=== PATIENT | male | born 1960 | race Caucasian/White ===

== ENCOUNTER → 2017-07-19 | Outpatient (CLI) | payer BC, SELFPAY | PROVIDERS: Visit Provider Allergy & Immunology | DX: L50.9 Urticaria, unspecified; T78.3XXA Angioneurotic edema, initial encounter | CPT/HCPCS: 36415; 80053; 84439; 84443; 85025; 86038; 86160; 86161; 86376 ==

== ENCOUNTER 2017-08-06 16:06 | Emergency (ER) | payer BC, SELFPAY ==
--- NOTE | 2017-08-06 07:54 | XR_ITS ---
XR chest 2V HISTORY: Cough with left-sided chest pain ITS.REASON: SOB, COUGH ORDERING PHYSICIAN: LILY Rivas PATIENT AGE: 57 years COMPARISON: 06/08/2017 FINDINGS: Prior median sternotomy. Normal heart size. Mild bibasilar atelectasis.. . The atelectasis has somewhat improved compared to the previous exam No acute bony abnormalities. IMPRESSION: Bibasilar atelectasis
[2017-08-06 16:30] VITALS: BP 168/116; PULSE 68; RESP 16; TEMP 36.7; O2SAT 98; BMI 30.4
== END 2017-08-06 17:30 | disposition home or self-care (01) ==
PROVIDERS: Emergency Provider Physician Assistant; PCP Family Medicine
DX: R09.1 Pleurisy (principal); R05 Cough; R10.12 Left upper quadrant pain
CPT/HCPCS: 71046; 93005; 99202; 99282; 99291

== ENCOUNTER → 2017-08-10 12:28 | Outpatient (CLI) | payer BC, SELFPAY ==
[2017-08-10 13:53] LABS: Basophils # 0.1 K/mm3 (0-0.2); Basophils % 0.4 % (0.1-2.0); Eosinophils # 0.2 K/mm3 (0.0-0.4); Eosinophils % 1.7 % (0.1-12.0); Hematocrit 48.2 % (42.0-52.0); Lymphocytes # 1.9 K/mm3 (0.7-4.5); Lymphocytes % 14.4 K/mm3 (10-50); Mean Corpuscular HGB Conc 33.3 g/dL (31.8-35.4); Mean Corpuscular Hemoglobin 29.6 pg (27.0-31.2); Mean Corpuscular Volume 88.9 fl (80-94); Mean Platelet Volume 7.6 fl (7.4-10.4); Monocytes # 1.2 K/mm3 (0.1-1.0); Monocytes % 9.1 % (1.7-9.3); Neutrophils # 9.8 K/mm3 (1.8-7.8); Neutrophils % 74.4 % (37.0-80.0); Platelet Count 394 K/mm3 (142-424); Red Blood Count 5.42 M/mm3 (4.60-6.20); Red Cell Distribution Width 13.8 % (11.5-17.5); White Blood Count 13.2 K/mm3 (4.8-10.8)
[2017-08-10 14:57] LABS: Alanine Aminotransferase 24 U/L (12-78); Albumin/Globulin Ratio 1.5 (1.1-1.8); Alkaline Phosphatase 127 U/L (46-116); Anion Gap 13.5 mEq/L (5-15); Aspartate Amino Transferase 12 U/L (15-37); Bilirubin,Total 0.5 mg/dL (0.2-1.0); Blood Urea Nitrogen 21 mg/dL (7-18); Calcium 8.6 mg/dL (8.5-10.1); Carbon Dioxide 26 mmol/L (21.0-32.0); Chloride 109 mmol/L (98-107); Creatinine,Serum 0.94 mg/dL (0.70-1.30); Estimated Glomerular Filt Rate 83 ml/min (>60); GFR (African American) 101 ML/MIN (>60); Globulin 2.6 gm/dl (1.3-3.2); Glucose 78 mg/dL (74-106); Potassium 4.5 mmoL/L (3.5-5.1); Sodium 144 mmol/L (136-145); Total Protein,Serum 6.6 gm/dL (6.4-8.2); Troponin I < 0.02 ng/ml (0.00-0.06)
[2017-08-10 15:06] LABS: C-Reactive Protein < 0.2 mg/L (0.0-0.9)
== END ==
PROVIDERS: PCP Family Medicine; Visit Provider Nurse Practitioner Family
DX: R07.9 Chest pain, unspecified (principal); J98.11 Atelectasis; R06.02 Shortness of breath
CPT/HCPCS: 36415; 80053; 83880; 84484; 85025; 86140

== ENCOUNTER → 2017-08-11 10:11 | Outpatient (CLI) | payer BC, SELFPAY ==
--- NOTE | 2017-08-11 10:19 | CT_ITS ---
CT chest wo/w con HISTORY: Shortness of breath, chest pain, atelectasis ITS.REASON: SOB,ATELECTASIS,CP ORDERING PHYSICIAN: Beatriz Carlos PATIENT AGE: 57 years TECHNIQUE: Axial images obtained without and with contrast. Sagittal and coronal reformatted images are also generated and reviewed. CONTRAST: 75ml Isovue 370 I.V. COMPARISON: 04/27/2017 CTA of the coronary arteries FINDINGS: There has been an interval median sternotomy with a GRANADOS coronary artery bypass graft. The heart size is normal. There is mild pectus deformity. No evidence of mediastinal hematoma or sternal dehiscence. No evidence of pericardial effusion. No evidence of aortic aneurysm or central pulmonary embolus. 4 mm noncalcified nodule in the right apex. Calcified granulomas present just inferior to this. Scattered calcified granulomas are present. There are minimal atelectatic changes or fibrotic changes within the lingula. No lobar consolidation or collapse. No central obstructing lesion. Upper abdominal images are unremarkable. No acute bony anomalies are evident. IMPRESSION: 1. Interval median sternotomy with coronary artery bypass graft. 2. No acute findings. 3. Minimal atelectatic or fibrotic changes within the lingula
== END ==
PROVIDERS: PCP Family Medicine; Visit Provider Nurse Practitioner Family
DX: R06.02 Shortness of breath (principal); J98.11 Atelectasis; R07.9 Chest pain, unspecified
CPT/HCPCS: 71270; Q9967

== ENCOUNTER 2017-09-14 19:56 | Emergency (ER) | payer BC, SELFPAY ==
[2017-09-14 20:04] VITALS: BP 190/103; PULSE 61; RESP 20; TEMP 36.2; O2SAT 99; BMI 30.4
--- NOTE | 2017-09-14 20:16 | CT_ITS ---
CT abdomen pelvis wo con CLINICAL INDICATION: ITS.REASON: RIGHT FLANK PAIN ORDERING PHYSICIAN: Omayra Edward MD PATIENT AGE: 57 years COMPARISON: None TECHNIQUE: Axial images obtained with sagittal and coronal reformats. PROCEDURE: Oral Contrast: None IV Contrast: None . FINDINGS: Lung bases show no acute finding. There is been prior median sternotomy. Liver, spleen, adrenal glands, and pancreas are unremarkable. There is a 3 mm right ureterovesical junction stone with mild right hydroureteronephrosis. The left kidney has an unremarkable appearance. Unremarkable appendix. No intestinal obstruction or free air. There is diverticulosis of the descending and sigmoid colon with no evidence of diverticulitis. There is a mild amount stool in the rectosigmoid region. No acute bony anomalies. IMPRESSION: 3 mm right ureterovesical junction stone with mild right hydroureter versus
[2017-09-14 20:24] LABS: Appearance,Urine CLEAR (Clear); Bilirubin,Urine Negative (Negative); Blood, Urine 1+ (Negative); Glucose,Urine (UA) TRACE (Negative); Ketones,Urine Negative (Negative); Leukocyte Esterase,Urine Negative (Negative); Microscopic, Urine URINE MICROSCOPIC (MICROSCOPIC); Nitrate,Urine Negative (Negative); Protein,Urine Negative (Negative); Urobilinogen,Urine 0.2 EU/dl (0.2)
[2017-09-14 20:25] LABS: Basophils # 0.1 K/mm3 (0-0.2); Basophils % 0.8 % (0.1-2.0); Eosinophils # 0.2 K/mm3 (0.0-0.4); Eosinophils % 2.1 % (0.1-12.0); Hematocrit 45.5 % (42.0-52.0); Hemoglobin 15.9 g/dL (14.1-18.0); Lymphocytes # 2.7 K/mm3 (0.7-4.5); Lymphocytes % 26.9 K/mm3 (10-50); Mean Corpuscular HGB Conc 34.8 g/dL (31.8-35.4); Mean Corpuscular Hemoglobin 30.3 pg (27.0-31.2); Mean Platelet Volume 7.5 fl (7.4-10.4); Monocytes # 1.2 K/mm3 (0.1-1.0); Neutrophils # 5.8 K/mm3 (1.8-7.8); Neutrophils % 58.2 % (37.0-80.0); Platelet Count 315 K/mm3 (142-424); Red Blood Count 5.23 M/mm3 (4.60-6.20); White Blood Count 9.9 K/mm3 (4.8-10.8)
[2017-09-14 20:27] LABS: Color,Urine Amber (Yellow)
[2017-09-14 20:41] LABS: Alanine Aminotransferase 40 U/L (12-78); Albumin/Globulin Ratio 1.3 (1.1-1.8); Alkaline Phosphatase 120 U/L (46-116); Aspartate Amino Transferase 19 U/L (15-37); Bilirubin,Total 0.5 mg/dL (0.2-1.0); Blood Urea Nitrogen 17 mg/dL (7-18); Calcium 8.9 mg/dL (8.5-10.1); Carbon Dioxide 27 mmol/L (21.0-32.0); Chloride 106 mmol/L (98-107); Creatinine Clearance Estimated 94 mL/min (0-300); Creatinine,Serum 1.14 mg/dL (0.70-1.30); Estimated Glomerular Filt Rate 67 ml/min (>60); GFR (African American) 81 ML/MIN (>60); Globulin 3.1 gm/dl (1.3-3.2); Glucose 103 mg/dL (74-106); Sodium 141 mmol/L (136-145); Total Protein,Serum 7.1 gm/dL (6.4-8.2)
--- NOTE | 2017-09-14 20:41 | HMH.EDGENADL ---
ED Disposition Clinical Impression: Right ureteral calculus Disposition: Home, Self-Care Condition on Discharge: Good Instructions: DI for Kidney Stones Additional Instructions: Additional instructions for KIDNEY STONE (URETERAL CALCULUS): See your physician as soon as possible for further evaluation. Drink plenty of fluids. Strain your urine and save any stones you catch. Return immediately if you develop a fever or have uncontrollable vomiting or uncontrollable pain. What is known about DIET and KIDNEY STONES: Most kidney stones contain calcium oxalate. The logical assumption would be that you should avoid calcium and oxalate in your diet. Contrary to what you would think, this is not necessarily the case. What is actually recommended for kidney stone prevention is a diet that contains MODERATELY HIGH AMOUNTS OF CALCIUM and is LOW IN SODIUM with PLENTY OF FLUIDS. Avoiding oxalate containing foods is recommended by some experts, but is controversial. Following the DASH (Dietary Approaches to Stop Hypertention) has been shown to significantly reduce the incidence of kidney stones. The DASH diet encourages you to reduce the sodium in your diet and eat a variety of foods rich in nutrients that help lower blood pressure, such as potassium, calcium and magnesium. Recommendations: Fluids: It is widely agreed upon that you need to drink plenty of fluids. A minimum would be 8-10 glasses (8 oz each) of fluid per day. Some experts recommend as much as 14-15 glasses a day. Sodium: The way to lower calcium in your urine is to lower your sodium intake. Try not to get more than 1500 mg a day. Calcium: Dietary calcium prevents absorption of oxalate. Make sure you get about 1000 to 1200 mg a day. You can get enough calcium from dairy products without taking supplements. Do not overdo it. Calcium should be ingested with meals, not in between meals. You need to get your calcium at mealtime to decrease the absorption of oxalate from other foods. Oxalate: Although some experts recommend avoiding oxalate in your diet, there have been no studies that prove this works. Eating more calcium will reduce oxalate absorption, and is probably all that is needed to reduce oxalate in your urine. Oxalate containing foods are generally good for you in all other respects - leafy greens, nuts, etc... So avoiding them unnecessarily might not be the best thing for your health. If you want to do something to avoid oxalate, avoid spinach and rhubarb - those are extremely high in oxalate (or at least eat a high calcium meal with these). ALSO: If you retrieve your stone by straining your urine, take it to your physician for stone analysis, which can help tailor your dietary recommendations. For further reading, check out the [facility] web page about the kidney stone diet: [email or web address] Additional instructions for CONTROLLED SUBSTANCES: You have been prescribed a medication that is a controlled substance. Controlled substances include pain medications known as opiates and sedative nerve medications known as benzodiazepines. Some common opiates include: Codeine (such as Tylenol #3) Hydrocodone (Vicodin, Lortab, Lorcet, [place]) Oxycodone (Percocet, Percodan, Oxycodone, Oxy IR) Some common benzodiazepines include: Diazepam (Valium) Lorazepam (Ativan) Alprazolam (Xanax) Clonazepam (Klonopin) Oxazepam (Serax) All of these controlled substances are highly addictive and frequently abused. Misuse can and frequently does lead to addiction as well as overdose and . Medication should be stored in a locked cabinet or other secure storage unit. Do not store the medication in a motor vehicle. Short term supplies, 3 days or less, are prescribed because of the highly addictive nature of the medication. Any of the controlled substance medication NOT taken should be disposed of properly and
[2017-09-14 21:03] LABS: Bacteria,Urine Trace /lpf
[2017-09-14 22:02] VITALS: BP 147/87; PULSE 67; RESP 16; TEMP 37; O2SAT 99
== END 2017-09-14 22:03 | disposition home or self-care (01) ==
PROVIDERS: Emergency Medicine; Emergency Provider Emergency Medicine; PCP Family Medicine
DX: N20.1 Calculus of ureter (principal); Z88.6 Allergy status to analgesic agent; Z87.442 Personal history of urinary calculi
CPT/HCPCS: 74176; 80053; 81001; 85025; 96374; 96375; 96376; 99283; J2405

== ENCOUNTER 2017-09-15 17:50 | Emergency (ER) | payer BC, SELFPAY ==
[2017-09-15 18:00] VITALS: BP 148/113; PULSE 70; RESP 20; TEMP 36.6; O2SAT 100; BMI 67.0
[2017-09-15 18:17] LABS: Basophils % 0.2 % (0.1-2.0); Eosinophils # 0.2 K/mm3 (0.0-0.4); Hematocrit 47.2 % (42.0-52.0); Lymphocytes # 1.1 K/mm3 (0.7-4.5); Mean Corpuscular HGB Conc 33.9 g/dL (31.8-35.4); Mean Corpuscular Hemoglobin 30.2 pg (27.0-31.2); Mean Corpuscular Volume 89.2 fl (80-94); Mean Platelet Volume 7.5 fl (7.4-10.4); Monocytes # 1.3 K/mm3 (0.1-1.0); Neutrophils # 15.4 K/mm3 (1.8-7.8); Neutrophils % 85.8 % (37.0-80.0); Platelet Count 248 K/mm3 (142-424); White Blood Count 17.9 K/mm3 (4.8-10.8)
--- NOTE | 2017-09-15 18:17 | HMH.EDABDPAI ---
ED Disposition Condition on Discharge: Fair Time of Disposition: 20:06 - Critical Care Critical Care Time: No <Marge Medel - Last Filed: 09/15/17 19:46> <Dwain White - Last Filed: 09/16/17 02:09> Clinical Impression: Calculus of kidney, Cystitis, Acute kidney injury Disposition: Xfer Critical Access Hosp Referrals: Mich Riley MD [Primary Care Provider] - Fredo Singleton MD [Staff Physician] - (Dr. Salas is covering for Dr. Mani casanova and accepts pt in transfer to [facility]) Attestation: On 09/15/17, the high probability of a clinically significant, sudden or life threatening deterioration of the following system(s) required my full and direct attention, intervention and personal management. The time I documented below is in addition to time spent performing reported procedures but includes the following listed in this critical care notation. Medical Decision Making - Lab Data Result diagrams: 09/15/17 18:10 09/15/17 18:10 - Radiology Data #1 Image(s): Abdomen Image Reviewed: Yes I reviewed the patient's radiology image - Epi Inquiry Pt receiving controlled substance: Yes Epi was queried for this patient: No Reason not queried -: Emergent pt cond-no time Risks and benefits of using a controlled substance: were discussed with pt by me <Marge Medel - Last Filed: 09/15/17 19:46> - Lab Data Result diagrams: 09/15/17 18:10 09/15/17 18:10 <Dwain White - Last Filed: 09/16/17 02:09> Vital Signs: 09/15/17 18:00 09/15/17 19:51 09/15/17 22:30 Temperature 97.9 F 98.6 F 98.6 F Temperature Source Tympanic Oral Oral Pulse Rate Pulse Rate [Right Radial] 70 94 H 65 Respiratory Rate 20 18 20 Blood Pressure Blood Pressure [Right Arm] 148/113 161/100 154/89 Blood Pressure Mean [Right Arm] 124 120 110 Blood Pressure Source Blood Pressure Source [Right Arm] Automatic Cuff Automatic Cuff Blood Pressure Position Blood Pressure Position [Right Arm] Sitting Sitting 02 Sat by Pulse Oximetry 100 96 97 Oxygen Delivery Method Room Air Room Air Room Air 09/15/17 23:13 09/15/17 23:31 Temperature 98.8 F Temperature Source Oral Pulse Rate 73 Pulse Rate [Right Radial] Respiratory Rate 16 Blood Pressure 166/87 Blood Pressure [Right Arm] Blood Pressure Mean [Right Arm] Blood Pressure Source Automatic Cuff Blood Pressure Source [Right Arm] Blood Pressure Position Sitting Blood Pressure Position [Right Arm] 02 Sat by Pulse Oximetry Oxygen Delivery Method Room Air Room Air - Lab Data Lab Results 09/15/17 18:10: WBC 17.9 H D, RBC 5.30, Hgb 16.0, Hct 47.2, MCV 89.2, MCH 30.2, MCHC 33.9, RDW 14.0, Plt Count 248, MPV 7.5, Neut % (Auto) 85.8 H, Lymph % (Auto) 6.0 L, [place] % (Auto) 7.0, Eos % (Auto) 1.0, Baso % (Auto) 0.2, Neut # (Auto) 15.4 H, Lymph # (Auto) 1.1, [place] # (Auto) 1.3 H, Eos # (Auto) 0.2, Baso # (Auto) 0.0, Total Counted 100, Neutrophils % (Manual) 77 H, Band Neutrophils % 6.0, Lymphocytes % (Manual) 14, Monocytes % (Manual) 3, Platelet Estimate Normal, RBC Morphology Normal 09/15/17 18:10: Sodium 138, Potassium 4.2, Chloride 104, Carbon Dioxide 24, Anion Gap 14.2, BUN 24 H D, Creatinine 1.88 H D, Estimated Creat Clear 43, Estimated GFR 37 L, Est GFR ( Amer) 45 L D, Glucose 130 H D, Calcium 8.7, Total Bilirubin 1.3 H, AST 17, ALT 35, Alkaline Phosphatase 129 H, Total Protein 7.4, Albumin 4.2, Globulin 3.2, Albumin/Globulin Ratio 1.3 09/15/17 18:10: Urine Color Yellow, Urine Appearance Clear, Urine pH 6.0, Ur Specific [place] >= 1.030, Urine Protein 1+, Urine Glucose (UA) Negative, Urine Ketones 1+, Urine Blood Negative, Urine Nitrate Negative, Urine Bilirubin Negative, Urine Urobilinogen 0.2, Ur Leukocyte Esterase Negative, Urine WBC 3-5, Ur Squamous Epith Cells 5-10 09/15/17 19:30: Lactic Acid 1.3 Orders (Tests/Meds): ED MEDICATIONS Discontinued Medications Generic Name Dose Route Start Last Admin Trade Name Freq PRN
[2017-09-15 18:18] LABS: Microscopic, Urine URINE MICROSCOPIC (MICROSCOPIC)
[2017-09-15 18:24] LABS: MANUAL DIFFERENTIAL MANUAL DIFFERENTIAL (MANUAL DIFF)
[2017-09-15 18:27] LABS: Appearance,Urine CLEAR (Clear); Blood, Urine Negative (Negative); Color,Urine YELLOW (Yellow); Glucose,Urine (UA) Negative (Negative); Ketones,Urine 1+ (Negative); Leukocyte Esterase,Urine Negative (Negative); Nitrate,Urine Negative (Negative); Protein,Urine 1+ (Negative); Specific Gravity, Urine >= 1.030 (1.005-1.030); Urobilinogen,Urine 0.2 EU/dl (0.2)
--- NOTE | 2017-09-15 18:30 | XR_ITS ---
XR KUB CLINICAL INDICATION: ITS.REASON: abdominal pain ORDERING PHYSICIAN: Marge Medel MD PATIENT AGE: 57 years COMPARISON: None FINDINGS: Nonspecific nonobstructive bowel gas pattern. There is mild amount retained colonic feces. No intestinal obstruction. No acute bony anomalies or urolithiasis. IMPRESSION: Mild constipation
[2017-09-15 18:33] LABS: Bilirubin,Urine Negative (Negative)
[2017-09-15 18:34] LABS: Alanine Aminotransferase 35 U/L (12-78); Albumin Level 4.2 gm/dL (3.4-5.0); Albumin/Globulin Ratio 1.3 (1.1-1.8); Alkaline Phosphatase 129 U/L (46-116); Anion Gap 14.2 mEq/L (5-15); Aspartate Amino Transferase 17 U/L (15-37); Bilirubin,Total 1.3 mg/dL (0.2-1.0); Blood Urea Nitrogen 24 mg/dL (7-18); Calcium 8.7 mg/dL (8.5-10.1); Carbon Dioxide 24 mmol/L (21.0-32.0); Chloride 104 mmol/L (98-107); Creatinine Clearance Estimated 43 mL/min (0-300); Creatinine,Serum 1.88 mg/dL (0.70-1.30); Estimated Glomerular Filt Rate 37 ml/min (>60); GFR (African American) 45 ML/MIN (>60); Globulin 3.2 gm/dl (1.3-3.2); Glucose 130 mg/dL (74-106); Potassium 4.2 mmoL/L (3.5-5.1); Sodium 138 mmol/L (136-145); Total Protein,Serum 7.4 gm/dL (6.4-8.2)
[2017-09-15 18:53] LABS: Lymphocytes % 14 % (10-50); Monocytes % 3 % (2-9); Neutrophils % 77 % (42-76); Platelet Estimate Normal; RBC Morphology Normal; Total Cells Counted 100
[2017-09-15 19:51] VITALS: BP 161/100; PULSE 94; RESP 18; TEMP 37; O2SAT 96
[2017-09-15 20:16] LABS: Lactic Acid 1.3 mmol/L (0.4-2.0)
[2017-09-15 22:30] VITALS: BP 154/89; PULSE 65; RESP 20; TEMP 37; O2SAT 97
[2017-09-15 23:13] VITALS: BP 166/87; PULSE 73; RESP 16; TEMP 37.1; O2SAT 96
== END 2017-09-15 23:22 | disposition critical access hospital (66) ==
PROVIDERS: General Practice; Emergency Provider Emergency Medicine; PCP Family Medicine
DX: N20.1 Calculus of ureter (principal)
CPT/HCPCS: 74018; 80053; 81001; 83605; 85007; 85025; 87040; 93041; 96365; 96366; 96367; 96374; 96375; 96376; 99284; J2405

== ENCOUNTER → 2017-10-03 17:13 | Outpatient (REF) | payer BC, SELFPAY ==
[2017-10-13 20:12] LABS: Calcium phosphate 60 % (.)
[2017-10-14 18:25] LABS: Specimen Type Comment: (.)
== END ==
LOC: LAB 17:13
PROVIDERS: Visit Provider Urology
DX: N20.0 Calculus of kidney (principal)
CPT/HCPCS: 82370

== ENCOUNTER 2019-12-16 16:47 | Emergency (ER) | payer OTHER, SELFPAY ==
--- NOTE | 2019-12-16 16:46 | ECG_ITS ---
APPROVED REPORT Exam: Resting ECG HR:64 bpm ECG Measurements Heart Rate 64 AXES HI 150 P 36 QRSd 82 QRS 20 QT 426 T 24 QTc 439 <Conclusion> Normal sinus rhythm Normal ECG Electronically signed by : Ankit Calix, 12/17/2019 08:52:09
[2019-12-16 16:49] VITALS: BP 191/114; PULSE 64; RESP 18; TEMP 36.6; O2SAT 98; BMI 31.9
--- NOTE | 2019-12-16 16:49 | XR_ITS ---
PROCEDURE: XR CHEST 2V CLINICAL HISTORY: Chest Pain Mid chest pain, heart disease COMPARISON: CXR CHEST(2 VIEWS-NOT PORTABLE) from 06/08/2017 CXR2V XR chest 2V from 08/06/[address] chest wo/w con from 08/11/2017 FINDINGS: Prior median sternotomy. Normal heart size. The lungs are clear without infiltrates, suspicious nodules, or pleural effusions. Mild thoracic curvature convex left IMPRESSION: No acute findings. Dictated by: Isaac Padilla MD 12/16/2019 17:18 Electronically signed by Isaac Padilla MD in [place] 12/16/2019 17:18
[2019-12-16 16:59] LABS: Basophils # 0.2 K/mm3 (0-0.2); Basophils % 2.1 % (0.1-2.0); Eosinophils # 0.3 K/mm3 (0.0-0.4); Eosinophils % 3.1 % (0.1-12.0); Hematocrit 48.8 % (42.0-52.0); Hemoglobin 16.5 g/dL (14.1-18.0); Lymphocytes # 1.7 K/mm3 (0.7-4.5); Mean Corpuscular HGB Conc 33.8 g/dL (31.8-35.4); Mean Corpuscular Hemoglobin 30.9 pg (27.0-31.2); Mean Corpuscular Volume 91.4 fl (80-94); Mean Platelet Volume 7.8 fl (7.4-10.4); Monocytes # 0.8 K/mm3 (0.1-1.0); Neutrophils # 6.1 K/mm3 (1.8-7.8); Neutrophils % 66.8 % (37.0-80.0); Platelet Count 271 K/mm3 (142-424); Red Blood Count 5.34 M/mm3 (4.60-6.20); White Blood Count 9.2 K/mm3 (4.8-10.8)
[2019-12-16 17:00] LABS: Chloride 101 mmol/L (98-107)
--- NOTE | 2019-12-16 17:00 | PC.NURSE ---
Pt to rad.
[2019-12-16 17:01] LABS: Potassium 4.1 mmoL/L (3.5-5.1); Sodium 139 mmol/L (136-145)
[2019-12-16 17:04] LABS: Anion Gap 12.1 mEq/L (5-15); Blood Urea Nitrogen 14 mg/dl (9-20); Calcium 9.3 mg/dl (8.4-10.2); Carbon Dioxide 30 mmol/L (22.0-30.0); Creatinine Clearance Estimated 110 mL/min (50-200); Estimated Glomerular Filt Rate 77 ml/min (>60); GFR (African American) 93 ML/MIN (>60); Glucose 110 mg/dl (74-100)
--- NOTE | 2019-12-16 17:05 | PC.NURSE ---
pt to xray
--- NOTE | 2019-12-16 17:09 | PC.NURSE ---
back from xray
[2019-12-16 17:21] LABS: Troponin I < 0.01 ng/ml (0.00-0.034)
[2019-12-16 17:49] VITALS: BP 135/89; PULSE 55; RESP 18; O2SAT 98
[2019-12-16 18:40] VITALS: BP 134/89; PULSE 63; O2SAT 94
--- NOTE | 2019-12-16 18:42 | HMH.EDCP ---
ED Disposition Clinical Impression: Chest pain, HTN (hypertension) Disposition: Home, Self-Care Condition on Discharge: Good Prescriptions: Losartan Potassium 50 mg PO DAILY 30 Days #30 tab Transmission Status: Pending to [facility] #[id number] Referrals: Mich Riley MD [Primary Care Provider] - - Critical Care Critical Care Time: No Attestation: On 12/16/19, the high probability of a clinically significant, sudden or life threatening deterioration of the following system(s) required my full and direct attention, intervention and personal management. The time I documented below is in addition to time spent performing reported procedures but includes the following listed in this critical care notation. Medical Decision Making - Medical Records Medical records reviewed: Yes: I reviewed the patient's medical records. - Epi Inquiry Pt receiving controlled substance: No Vital Signs: 12/16/19 16:49 12/16/19 17:49 12/16/19 18:40 Temperature 97.9 F Temperature Source Oral Pulse Rate [Right Radial] 64 55 L 63 Respiratory Rate 18 18 Blood Pressure [Right Arm] 191/114 H 135/89 134/89 Blood Pressure Mean [Right Arm] 139 104 104 Blood Pressure Source [Right Arm] Automatic Cuff Automatic Cuff Automatic Cuff Blood Pressure Position [Right Arm] Sitting Sitting Sitting 02 Sat by Pulse Oximetry 98 98 94 L Oxygen Delivery Method Room Air Room Air Room Air - Lab Data Lab results reviewed: Yes: I reviewed the patient's lab results. Lab Results 12/16/19 16:50: WBC 9.2, RBC 5.34, Hgb 16.5, Hct 48.8, MCV 91.4, MCH 30.9, MCHC 33.8, RDW 14.0, Plt Count 271, MPV 7.8, Neut % (Auto) 66.8, Lymph % (Auto) 19.0, [place] % (Auto) 9.0, Eos % (Auto) 3.1, Baso % (Auto) 2.1 H, Neut # (Auto) 6.1, Lymph # (Auto) 1.7, [place] # (Auto) 0.8, Eos # (Auto) 0.3, Baso # (Auto) 0.2 12/16/19 16:50: Sodium 139, Potassium 4.1, Chloride 101, Carbon Dioxide 30, Anion Gap 12.1, BUN 14, Creatinine 1.00, Estimated Creat Clear 110, Estimated GFR 77, Est GFR ( Amer) 93, Glucose 110 H, Calcium 9.3, Troponin I < 0.01 Result diagrams: 12/16/19 16:50 12/16/19 16:50 Orders (Tests/Meds): ED MEDICATIONS Discontinued Medications Generic Name Dose Route Start Last Admin Trade Name Danny PRN Reason Stop Dose Admin Nitroglycerin 1 gm 12/16/19 16:57 12/16/19 16:59 Nitroglycerin 1 Inch Oint Udp TD 12/16/19 16:58 1 gm ONCE ONE Administration ORDERS Category Date Time Status Troponin I Q3H Lab 12/16/19 20:00 Ordered Troponin I Q3H Lab 12/16/19 23:00 Ordered Troponin I Stat Lab 12/16/19 18:30 Received - Radiology Data #1 Image(s): Chest Preliminary Findings: Normal/NAD - ECG Data Tracing #1 I reviewed this ECG and interpreted as documented below: Normal Sinus Rhythm: Yes - MARYANNE Score for Non-Stemi Age of Patient: 50-59 years old Heart Rate: 50-69 bpm Systolic Blood Pressure: 160-199 mmHg Serum Creatinine: 0.80-1.19 mg/dl CHF [place] Class: I-No CHF Other Risk Factors: None Non-Stemi Risk Score: 61 Risk Stratification: 1-108 = Low Risk Medical Decision Narrative: Patient had 2 sets of cardiac markers done here in the ED which were both normal. 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 Chest Pain HPI - General Chief Complaint: Chest Pain Stated Complaint: Chest Pain Time Seen by Provider: 12/16/19 18:00 Mode of Arrival: Ambulatory Source of Information: Patient Limitations: No Limitations Description of Symptoms (Recalled from ER Triage Doc. by RN): Pt reports sharp chest pain radiating into his back. Pt reports the pain began approx 1 pm today. Pt denies fever, cough, SOA. - History of Present Illness MD complaint: chest pain Onset (ago): day(s) Time: 12:00 Duration: now resolved Activity at onset: during rest Pain location: substernal Severity: moderate Severity scale (1-10): 4 Quality: sharp
--- NOTE | 2019-12-16 18:59 | PC.NURSE ---
shift change report given to pieterrn
[2019-12-16 19:19] VITALS: BP 128/84; PULSE 57; O2SAT 95
[2019-12-16 19:32] LABS: Troponin I < 0.01 ng/ml (0.00-0.034)
[2019-12-16 19:38] VITALS: BP 125/96; PULSE 59; RESP 14; TEMP 36.8; O2SAT 98
== END 2019-12-16 19:43 | disposition home or self-care (01) ==
PROVIDERS: Emergency Provider Family Medicine; PCP Family Medicine
DX: R07.9 Chest pain, unspecified (principal); I10 Essential (primary) hypertension; I25.10 Atherosclerotic heart disease of native coronary artery without angina pectoris; E78.5 Hyperlipidemia, unspecified; Z88.5 Allergy status to narcotic agent; Z79.899 Other long term (current) drug therapy
CPT/HCPCS: 36415; 71046; 80048; 84484; 85025; 93005; 99284

== ENCOUNTER → 2020-01-23 08:09 | Outpatient (CLI) | payer OTHER, SELFPAY ==
--- NOTE | 2020-01-23 08:10 | CA_ITS ---
APPROVED REPORT EXAM: Comprehensive 2D, Doppler, and color-flow Echocardiogram Qa Consultant: Nina Partida CRT Ht: 5 ft 9 in Wt: 214lbs BSA: 2.13 BP: 125/85 mmHg Indications: CP,SOA,CAD,CABG,NELA,HTN,HLD 2D Dimensions LVOT 1.90 cm (M/F) 1.5-2.5 M-Mode Dimensions RVDd 3.43 cm (0.9-2.6) LVDd 5.25 cm (3.5-5.7) LVDs 3.23 cm (3.5-5.7) IVSd 0.65 cm (0.6-1.1) PWd 1.05 cm (0.6-1.1) EF (Teich) 68.40% FS 38.50% EDV (Teich) 132.40 mL ESV (Teich) 41.90 mL LV Diastology E/A Ratio 1.15 Mitral Valve MV A Velocity 46.00 (40-130 cm/s) Left Ventricle Left atrium is mildly enlarged, left ventricle is normal size, mild concentric left ventricular hypertrophy, visually estimated ejection fraction 55% with no regional wall motion abnormality, endocardial surfaces are poorly visualized. Diastolic parameters are inconclusive. Right Ventricle Right atrium and right ventricle are mildly enlarged with normal contractility. Aortic Valve Aortic valve is minimally thickened and fibrosed. There is no aortic stenosis aortic insufficiency. Mitral Valve Mitral valve is minimally thickened, there is mild mitral regurgitation. Tricuspid Valve Tricuspid valve is grossly normal, there is mild tricuspid regurgitation, tricuspid regurgitation jet velocity is inadequate for calculation of the right ventricular systolic pressure. Pulmonic Valve Pulmonic valve is minimally thickened, there is no pulmonic stenosis, there is mild pulmonic insufficiency. Great Vessels Aortic root is normal size. Pericardium No significant pericardial effusion noted Conclusion 1. Mildly enlarged left atrium, normal left ventricular size, mild concentric left ventricular hypertrophy, visually estimated ejection fraction 55% with no regional wall motion abnormality, diastolic parameters are inconclusive. 2. Mildly enlarged right ventricle with normal contractility. 3. Mild mitral and tricuspid regurgitation. 4. No significant pericardial effusion noted. Electronically signed by : Horacio De La Garza, 01/23/2020 13:12:59
--- NOTE | 2020-01-23 08:44 | US_ITS ---
PROCEDURE: US ABDOMEN COMPLETE CLINICAL INDICATION: GERD, abdominal pain COMPARISON: No exams were available for comparison FINDINGS: PANCREAS: Unremarkable. No obvious mass or abnormal fluid collection. No ductal dilatation LIVER: No focal liver lesions demonstrated. Increased echogenicity. No intrahepatic biliary ductal dilatation evident. There is appropriate direction of blood flow within a non dilated portal vein RIGHT KIDNEY: Unremarkable. Normal size and echogenicity. No hydronephrosis 12 centimeters x 6 centimeters x 5 centimeters LEFT KIDNEY: Unremarkable. Normal size and echogenicity. No hydronephrosis 9 millimeter lower pole cyst, 11 centimeters x 6 centimeters x 5 centimeters GALLBLADDER: No gallstones, gallbladder wall thickening, pericholecystic fluid, or biliary dilatation. AORTA: No evidence of aneurysmal dilatation. SPLEEN: Unremarkable. Normal size and echogenicity ASCITES: None demonstrated. IMPRESSION: Hepatic steatosis, small left renal cyst Dictated by: Earl Lala 01/23/2020 09:52 Electronically signed by Earl Lala in [place] 01/23/2020 09:52
== END ==
PROVIDERS: PCP Family Medicine; Visit Provider Nurse Practitioner Family
DX: R07.9 Chest pain, unspecified (principal); R10.9 Unspecified abdominal pain; K21.9 Gastro-esophageal reflux disease without esophagitis; Q24.5 Malformation of coronary vessels; E78.2 Mixed hyperlipidemia; G47.33 Obstructive sleep apnea (adult) (pediatric); I10 Essential (primary) hypertension; Z95.1 Presence of aortocoronary bypass graft
CPT/HCPCS: 76700; 93306

== ENCOUNTER → 2020-12-22 15:56 | Outpatient (CLI) | payer OTHER, SELFPAY | PROVIDERS: Visit Provider Surgery | DX: Z11.52 Encounter for screening for COVID-19 (principal); U07.1 COVID-19 | CPT/HCPCS: U0003 ==

== ENCOUNTER → 2021-01-12 15:50 | Outpatient (CLI) | payer OTHER, SELFPAY | PROVIDERS: Visit Provider Surgery | DX: Z01.812 Encounter for preprocedural laboratory examination (principal); Z20.822 Contact with and (suspected) exposure to COVID-19; Z12.11 Encounter for screening for malignant neoplasm of colon; Z86.010 Personal history of colon polyps | CPT/HCPCS: U0003 ==

== ENCOUNTER 2021-01-14 08:16 | Day surgery (SDC) | payer OTHER, SELFPAY ==
[2020-12-22 10:28] VITALS: BMI 31.1
[2021-01-14] VITALS (8 sets, daily range): BP systolic 99–155; BP diastolic 56–96; PULSE 55–74; RESP 16–20; TEMP 36.1–36.7; O2SAT 92–99
--- NOTE | 2021-01-14 08:25 | HMH.ANESCL ---
[facility] Anesthesia Checklist - Patient Identification Patient Identification: Arm Band - Structural Data Admitted From: Home Planned Operative Procedure/s: Colonoscopy Consent for Planned Operative Procedure(s) Verified: Yes - NPO Status Verified Time NPO: 05:30 (Prep) - Airway Assessment C-Spine Mobility Assessed: Yes TMJ Mobility Assessed: Yes Dentition: Good Dentition - Neurological Assessment Level of Consciousness: Awake Hx Seizures: No Numbness or tingling in extremities: No - Anesthesia Plan Anesthesia Risk discussed: Yes Anesthesia Plan: Verified ASA Class: III Anesthesia Type: MAC [facility] History I have reviewed the patient's past medical history: Yes Medical History: Reports:: Congenital Heart Disease, Coronary Artery Disease, Hyperlipidemia, Hypertension Denies:: Cancer, Diabetes Mellitus Type 1, Diabetes Mellitus Type 2, Internal Pacemaker, MRSA *Have you ever received a pneumonia vaccine?: No *Have you received a flu vaccine this season?: No Other Medical History: Reports: Other (Transposition of the great arteries - CABG) Anesthesia experience/problems:: None Other Surgeries: Yes: No Previous Surgery, Cardiac Catheterization, Colonoscopy, Open Heart Surgery, Other (HEART ). No: Pacemaker Amputation: No Fractures: No - *Social History Smoking Status: Never smoker Alcohol Intake: never Alcohol Intake Frequency:: other Substance Use Type: denies use *Occupational Status:: employed Housing: house Household Members: spouse *Travel in the last 8 weeks: None Family Hx:: No significant family history
--- NOTE | 2021-01-14 09:45 | P.PCN_ITS ---
- Procedure: Date: 01/14/21 Patient Date of :: 1960 Procedure Performed:: Colonoscopy with polypectomy Indications:: History of colon polyps Performing Provider:: Terry Gomez MD Referring Provider:: . Sedation:: Monitored anesthesia care Procedure:: After informed consent was obtained the patient was taken to the endoscopy suite. Sedation ensued after the patient was transferred to the left lateral decubitus position. Pulse, blood pressure, and oxygen saturation were monitored throughout the procedure. Digital rectal exam revealed no significant abnormality. The colonoscope was placed in position. The entire colon was evaluated. The colonoscope was carefully removed and the patient was transferred to recovery in stable condition. Please see findings and specimens below for detail. Findings:: Bowel preparation fair to moderate Moderate tortuosity and spasticity Mild hemorrhoidal cushions Minimal scattered sigmoid diverticuli Multiple complex polyps (see specimens) Specimens:: Elongated lobulated periappendiceal polyp Complex lobulated elongated cecal polyp and adjacent polyps (directly across from ileocecal valve) --snare Lobulated complex 1 cm polyp at 65 cm --snare and tattoo Polyp at 50 cm --snare Polyp at 10 cm Lobulated complex polyp at 8 cm (snare) Recommendations:: Timing of repeat colonoscopy is pending pathology but will likely be between 6- 12 months secondary to size/nature/number of polyps and need to reevaluate site of tattoo. Complications:: No immediate Estimated blood obtained (mL): 1
== END 2021-01-14 11:20 | disposition home or self-care (01) ==
LOC: OUTP 08:18
PROVIDERS: PCP Family Medicine; Visit Provider Surgery
PROC: 0DJD8ZZ Inspection of Lower Intestinal Tract, Via Natural or Artificial Opening Endoscopic (ICD-10-PCS; CPT 45385; principal; 2021-01-14 08:30)
DX: Z12.11 Encounter for screening for malignant neoplasm of colon (principal); K62.1 Rectal polyp; K56.2 Volvulus; K64.9 Unspecified hemorrhoids; K57.30 Diverticulosis of large intestine without perforation or abscess without bleeding; K63.5 Polyp of colon; Z86.010 Personal history of colon polyps; Q24.9 Congenital malformation of heart, unspecified; I25.10 Atherosclerotic heart disease of native coronary artery without angina pectoris; E78.5 Hyperlipidemia, unspecified; I10 Essential (primary) hypertension; Z88.6 Allergy status to analgesic agent
CPT/HCPCS: 45385; J2704

== ENCOUNTER 2021-06-17 15:57 | Emergency (ER) | payer OTHER, SELFPAY ==
[2021-06-17 15:58] VITALS: BP 181/113; PULSE 75; RESP 20; TEMP 36.9; O2SAT 96; BMI 31.9
[2021-06-17 16:01] VITALS: BMI 31.9
--- NOTE | 2021-06-17 16:02 | XR_ITS ---
PROCEDURE: XR CHEST PORTABLE CLINICAL HISTORY: CHEST PAIN COMPARISON: CR CXR CHEST(2 VIEWS-NOT PORTABLE) from 06/08/2017 CR CXR2V XR chest 2V from 08/06/[address] chest wo/w con from 08/11/2017 CR XR CHEST 2V from 12/16/2019 FINDINGS: Prior CABG. Normal heart size. The lungs are clear without infiltrates, suspicious nodules, or pleural effusions. No acute bony abnormalities. IMPRESSION: No acute findings. Dictated by: Isaac Padilla MD 06/17/2021 17:15 Isaac Padilla MD in [place] 06/17/2021 17:15
--- NOTE | 2021-06-17 16:04 | HMH.EDGENADL ---
ED Disposition Clinical Impression: Acute left flank pain, Atypical chest pain Hematuria Qualifiers: Hematuria type: gross Qualified Code(s): R31.0 - Gross hematuria Disposition: Home, Self-Care Condition on Discharge: Fair Instructions: DI for Atypical Chest Pain, DI for Flank Pain Additional Instructions: You have been evaluated for flank pain and atypical chest pain. There is blood in your urine, suggesting a recently passed kidney stone. Please take Tylenol and Motrin for pain. [place] for extreme pain. Follow-up with your primary care doctor. Return to the emergency department at once for any new or worsening symptoms, chest pain with exertion, syncope, any other concerns. Prescriptions: Hydrocod/Acet 5/325 mg [[place] 5/325mg tablet] 1 tab PO Q6HP PRN #12 tab PRN Reason: Severe Pain Transmission Status: Sent to [facility] #[id number] Ondansetron [Zofran 4mg ODT] 4 mg PO DAILYP PRN #12 tab PRN Reason: Nausea Transmission Status: Pending to [facility] #[id number] Referrals: Mich Riley MD [Primary Care Provider] - Time of Disposition: 19:29 - Critical Care Critical Care Time: No Attestation: On , the high probability of a clinically significant, sudden or life threatening deterioration of the following system(s) required my full and direct attention, intervention and personal management. The time I documented below is in addition to time spent performing reported procedures but includes the following listed in this critical care notation. Medical Decision Making - Medical Records Medical records reviewed: Yes: I reviewed the patient's medical records. - Epi Inquiry Pt receiving controlled substance: No Vital Signs: 06/17/21 15:58 06/17/21 16:31 06/17/21 17:00 Temperature 98.4 F Temperature Source Oral Pulse Rate 71 67 Pulse Rate [Left Radial] 75 Respiratory Rate 20 21 15 Blood Pressure 155/88 H 147/93 H Blood Pressure [Right Arm] 181/113 H Blood Pressure Mean [Right Arm] 135 Blood Pressure Source [Right Arm] Automatic Cuff Blood Pressure Position [Right Arm] Sitting 02 Sat by Pulse Oximetry 96 96 93 L Oxygen Delivery Method Room Air 06/17/21 17:30 06/17/21 18:00 Temperature Temperature Source Pulse Rate 79 Pulse Rate [Left Radial] Respiratory Rate 14 16 Blood Pressure 144/89 H 161/100 H Blood Pressure [Right Arm] Blood Pressure Mean [Right Arm] Blood Pressure Source [Right Arm] Blood Pressure Position [Right Arm] 02 Sat by Pulse Oximetry 97 Oxygen Delivery Method - Lab Data Lab Results 06/17/21 16:10: D-Dimer 0.48 06/17/21 16:10: WBC 8.3, RBC 5.21, Hgb 16.5, Hct 48.1, MCV 92.4, MCH 31.6 H, MCHC 34.3, RDW 13.9, Plt Count 256, MPV 8.5, Neut % (Auto) 66.1, Lymph % (Auto) 21.5, [place]mullen % (Auto) 8.1, Eos % (Auto) 3.5, Baso % (Auto) 0.8, Neut # (Auto) 5.5, Lymph # (Auto) 1.8, [place] # (Auto) 0.7, Eos # (Auto) 0.3, Baso # (Auto) 0.1 06/17/21 16:10: Sodium 141, Potassium 4.3, Chloride 106, Carbon Dioxide 28, Anion Gap 11.3, BUN 24 H, Creatinine 1.10, Estimated Creat Clear 97, Estimated GFR 69, Est GFR ( Amer) 83, Glucose 100, Calcium 8.8, Troponin I < 0.01 06/17/21 18:00: Urine Color Yellow, Urine Appearance Sl cloudy, Urine pH 7.0, Ur Specific [place] 1.025, Urine Protein Negative, Urine Glucose (UA) Negative, Urine Ketones Trace, Urine Blood 3+, Urine Nitrate Negative, Urine Bilirubin Negative, Urine Urobilinogen 1.0, Ur Leukocyte Esterase Negative, Urine RBC 50-100, Urine WBC 5-10, Ur Squamous Epith Cells Occasional, Urine Bacteria Trace 06/17/21 19:14: Troponin I < 0.01 Result diagrams: 06/17/21 16:10 06/17/21 16:10 Orders (Tests/Meds): ED MEDICATIONS Generic Name Dose Route Start Last Admin Trade Name Freq PRN Reason Stop Dose Admin Sodium Chloride 1,000 mls @ 999 mls/hr 06/17/21 18:15 06/17/21 18:13 Sod Chlor 0.9% 1000ml Bag IV 11/18/21 19:15 999 mls/hr .Q1H1M WILLIS Administration Discontinued Med
--- NOTE | 2021-06-17 16:05 | ECG_ITS ---
APPROVED REPORT Exam: Resting ECG HR:70 bpm ECG Measurements Heart Rate 70 AXES MO 154 P 40 QRSd 82 QRS 40 QT 402 T 62 QTc 434 Conclusion Normal sinus rhythm Normal ECG Electronically signed by : Mich Parekh MD 06/18/2021 09:54:24
[2021-06-17 16:18] LABS: Basophils # 0.1 K/mm3 (0-0.2); Basophils % 0.8 % (0.1-2.0); Eosinophils # 0.3 K/mm3 (0.0-0.4); Eosinophils % 3.5 % (0.1-12.0); Hematocrit 48.1 % (42.0-52.0); Hemoglobin 16.5 g/dL (14.1-18.0); Lymphocytes # 1.8 K/mm3 (0.7-4.5); Lymphocytes % 21.5 % (10-50); Mean Corpuscular HGB Conc 34.3 g/dL (31.8-35.4); Mean Corpuscular Hemoglobin 31.6 pg (27.0-31.2); Mean Corpuscular Volume 92.4 fl (80-94); Mean Platelet Volume 8.5 fl (7.4-10.4); Monocytes # 0.7 K/mm3 (0.1-1.0); Monocytes % 8.1 % (1.7-9.3); Neutrophils # 5.5 K/mm3 (1.8-7.8); Neutrophils % 66.1 % (37.0-80.0); Platelet Count 256 K/mm3 (142-424); Red Blood Count 5.21 M/mm3 (4.60-6.20); Red Cell Distribution Width 13.9 % (11.5-17.5); White Blood Count 8.3 K/mm3 (4.8-10.8)
[2021-06-17 16:23] LABS: Chloride 106 mmol/L (98-107); Sodium 141 mmol/L (136-145)
[2021-06-17 16:24] LABS: Potassium 4.3 mmoL/L (3.5-5.1)
[2021-06-17 16:26] LABS: Blood Urea Nitrogen 24 mg/dl (9-20); Creatinine Clearance Estimated 97 mL/min (50-200); Estimated Glomerular Filt Rate 69 ml/min (>60); GFR (African American) 83 ML/MIN (>60)
[2021-06-17 16:27] LABS: Anion Gap 11.3 mEq/L (5-15); Calcium 8.8 mg/dl (8.4-10.2); Carbon Dioxide 28 mmol/L (22.0-30.0); Glucose 100 mg/dl (74-100)
[2021-06-17 16:31] VITALS: BP 155/88; PULSE 71; RESP 21; O2SAT 96
[2021-06-17 16:39] LABS: Troponin I < 0.01 ng/ml (0.00-0.034)
[2021-06-17 16:50] LABS: D-Dimer 0.48 ug/mL (0.0-0.5)
[2021-06-17 17:00] VITALS: BP 147/93; PULSE 67; RESP 15; O2SAT 93
--- NOTE | 2021-06-17 17:18 | CT_ITS ---
PROCEDURE INFORMATION: Exam: CT Abdomen And Pelvis With Contrast Exam date and time: 06/17/2021 5:18 PM Age: 61 years old Clinical indication: Patient HX: Hematuria, pain in left flank after urinating TECHNIQUE: Imaging protocol: Computed tomography of the abdomen and pelvis with contrast. Radiation optimization: All CT scans at this facility use at least one of these dose optimization techniques: automated exposure control; mA and/or kV adjustment per patient size (includes targeted exams where dose is matched to clinical indication); or iterative reconstruction. Contrast material: ISOVUE; Contrast volume: 75 ml; Contrast route: IV; [facility] abdomen pelvis wo con 09/14/2017 8:40 PM FINDINGS: Liver: Normal. No mass. Gallbladder and bile ducts: Normal. No calcified stones. No ductal dilation. Pancreas: Normal. No ductal dilation. Spleen: Normal. No splenomegaly. Adrenal glands: Normal. No mass. Kidneys and ureters: Normal. No hydronephrosis. Stomach and bowel: Unremarkable. No obstruction. No mucosal thickening. Appendix: Normal appendix. Intraperitoneal space: Unremarkable. No free air. No significant fluid collection. Vasculature: Unremarkable. No abdominal aortic aneurysm. Lymph nodes: Shotty bilateral groin lymph nodes. Urinary bladder: Urinary bladder wall thickening could be due to cystitis or lack of distention. Reproductive: Unremarkable as visualized. Bones/joints: Unremarkable. No acute fracture. Soft tissues: Unremarkable. IMPRESSION: No acute findings. No obstructive uropathy.
[2021-06-17 17:30] VITALS: BP 144/89; RESP 14
[2021-06-17 18:00] VITALS: BP 161/100; PULSE 79; RESP 16; O2SAT 97
[2021-06-17 18:09] LABS: Microscopic, Urine URINE MICROSCOPIC (MICROSCOPIC)
[2021-06-17 18:11] LABS: Appearance,Urine SL CLOUDY (Clear); Bilirubin,Urine Negative (Negative); Blood, Urine 3+ (Negative); Color,Urine YELLOW (Yellow); Glucose,Urine (UA) Negative (Negative); Ketones,Urine TRACE (Negative); Leukocyte Esterase,Urine Negative (Negative); Nitrate,Urine Negative (Negative); Protein,Urine Negative (Negative); Specific Gravity, Urine 1.025 (1.005-1.030)
--- NOTE | 2021-06-17 18:12 | PC.NURSE ---
PT CAME BACK FROM CT AND URINATED AND NOW HE IS HAVING ALOT OF PAIN , MEDS ORDERED
--- NOTE | 2021-06-17 18:32 | PC.NURSE ---
PT WAS STILL HAVING SEVERE PAIN UNABLE TO STAY IN BED , DILAUDID 1MG GIVEN PT RESTING
[2021-06-17 18:38] LABS: Bacteria,Urine Trace /lpf; RBC,Urine 50-100 #/hpf (0-3); Squamous Epithelial Cell,Urine Occasional #/hpf (0-5)
[2021-06-17 19:57] LABS: Troponin I < 0.01 ng/ml (0.00-0.034)
[2021-06-17 20:11] VITALS: BP 146/57; PULSE 63; RESP 20; TEMP 36.8; O2SAT 97
== END 2021-06-17 20:29 | disposition home or self-care (01) ==
PROVIDERS: Emergency Provider Emergency Medicine; PCP Family Medicine
DX: R07.89 Other chest pain (principal); R31.0 Gross hematuria; I10 Essential (primary) hypertension; I25.10 Atherosclerotic heart disease of native coronary artery without angina pectoris; E78.5 Hyperlipidemia, unspecified
CPT/HCPCS: 71045; 74177; 80048; 81001; 84484; 85025; 85378; 93005; 96365; 96375; 99283; J2405; Q9967

== ENCOUNTER → 2021-07-07 16:00 | Outpatient (CLI) | payer OTHER, SELFPAY | PROVIDERS: Visit Provider Urology | DX: Z01.812 Encounter for preprocedural laboratory examination (principal); Z11.52 Encounter for screening for COVID-19; N20.0 Calculus of kidney; R31.9 Hematuria, unspecified | CPT/HCPCS: C9803; U0003; U0005 ==

== ENCOUNTER 2021-07-09 08:32 | Day surgery (SDC) | payer OTHER, SELFPAY ==
[2021-07-05 12:51] VITALS: BMI 33.4
[2021-07-09 08:47] VITALS: BP 139/76; PULSE 61; RESP 18; TEMP 36.3; O2SAT 99
[2021-07-09 09:40] VITALS: BP 158/97; PULSE 88; RESP 18; TEMP 36.8; O2SAT 100
--- NOTE | 2021-07-09 10:10 | HMH.OPNOTE ---
Date of procedure: 07/09/21 Pre-op Diagnosis:: Gross hematuria Post-op Diagnosis:: Gross hematuria secondary to BPH and blood thinners Procedure performed:: Cystoscopy Surgeon:: Raul Vargas MD Anesthesia: local Estimated blood loss (mL): 0 Clinical Note:: 61-year-old white male with persistent gross hematuria noted at the beginning of urinary stream presents for cystoscopic evaluation. CT has shown no evidence of stones, masses or obstruction. Operative findings:: Bladder shows no evidence of mucosal abnormalities. The prostate was enlarged and friable. Operative note:: Patient taken to the operating suite after informed consent was obtained. On the stretcher he was prepped and draped in the standard surgical fashion and 2% lidocaine placed into the urethra and the urethra clamped for 5 minutes. After 5 minutes the flexible cystoscope introduced into the urethral meatus and passed to the prostatic urethra which showed bilobar hyperplasia. The scope was passed into the bladder and the bladder examined in a systematic fashion. There is no evidence of mucosal abnormalities, stones, diverticula or trabeculation. The ureteral orifices were visualized and were of normal shape and configuration and clear efflux of urine was noted. Prostate was enlarged in a median lobe was moderate in size protruding into the bladder. Scope was retroflexed showing no bladder neck abnormalities. The prostatic urethra was friable on exam. The scope removed patient tolerated the procedure well no complications. We discussed the findings today and patient is going to be placed on a course of finasteride. Condition: stable Disposition: same day Specimens:: None Complications:: None
== END 2021-07-09 09:48 | disposition home or self-care (01) ==
LOC: OUTP 08:33
PROVIDERS: PCP Family Medicine; Visit Provider Urology
PROC: (CPT 52000; principal; 2021-07-09 09:30)
DX: N40.0 Benign prostatic hyperplasia without lower urinary tract symptoms (principal); R31.0 Gross hematuria; I25.10 Atherosclerotic heart disease of native coronary artery without angina pectoris; E78.5 Hyperlipidemia, unspecified; I10 Essential (primary) hypertension; I51.89 Other ill-defined heart diseases; Z88.6 Allergy status to analgesic agent; Z79.899 Other long term (current) drug therapy
CPT/HCPCS: 52000

== ENCOUNTER → 2021-11-20 08:36 | Outpatient (CLI) | payer OTHER, SELFPAY | PROVIDERS: Visit Provider Surgery | DX: Z01.812 Encounter for preprocedural laboratory examination (principal); Z11.52 Encounter for screening for COVID-19; Z12.11 Encounter for screening for malignant neoplasm of colon; Z86.010 Personal history of colon polyps | CPT/HCPCS: C9803; U0003; U0005 ==

== ENCOUNTER 2021-11-23 08:22 | Day surgery (SDC) | payer OTHER, SELFPAY ==
[2021-11-17 14:21] VITALS: BMI 32.6
[2021-11-23] VITALS (7 sets, daily range): BP systolic 120–149; BP diastolic 74–97; PULSE 48–57; RESP 18; TEMP 36.1–36.6; O2SAT 96–100
--- NOTE | 2021-11-23 09:08 | P.PN_ITS ---
[facility] Anesthesia Checklist - Patient Identification Patient Identification: Arm Band - Structural Data Admitted From: Home Planned Operative Procedure/s: colonoscopy Consent for Planned Operative Procedure(s) Verified: Yes Verified Documents: Surgical Consent, History and Physical - NPO Status Verified Time NPO: 00:00 - Additional verifications Anesthesia Reactions: No - Airway Assessment C-Spine Mobility Assessed: Yes (mp2) TMJ Mobility Assessed: Yes Dentition: Good Dentition - Neurological Assessment Level of Consciousness: Awake, Alert - Anesthesia Plan Anesthesia Risk discussed: Yes Anesthesia Plan: Verified ASA Class: III Anesthesia Type: MAC [facility] History I have reviewed the patient's past medical history: Yes Medical History: Reports:: Congenital Heart Disease, Coronary Artery Disease, Hyperlipidemia, Hypertension, Kidney Stones Denies:: Cancer, Diabetes Mellitus Type 1, Diabetes Mellitus Type 2, Internal Pacemaker, MRSA, Seizures *Have you ever received a pneumonia vaccine?: No *Have you received a flu vaccine this season?: Yes Other Medical History: Reports: Other Anesthesia experience/problems:: nac Other Surgeries: Yes: Cardiac Catheterization, Colonoscopy, Open Heart Surgery, Other (HEART ). No: Pacemaker Amputation: No Fractures: No - *Social History Last grade of school completed: High school graduate Smoking Status: Never smoker Alcohol Intake: never Alcohol Intake Frequency:: other Substance Use Type: denies use *Occupational Status:: employed Housing: house Household Members: spouse *Travel in the last 8 weeks: None Family Hx:: No significant family history
--- NOTE | 2021-11-23 09:10 | HMH.SCOPE ---
- Procedure: Date: 11/23/21 Patient Date of :: 1960 Procedure Performed:: Colonoscopy with polypectomy Indications:: History of colon polyps Most recent colonoscopy in December 2020 revealed multiple complex polyps. Fair to moderate bowel preparation and moderate tortuosity noted. Complex adenomatous polyps were noted in the periappendiceal region, cecum, 65 cm (1 cm polyp/tattoo placed), 50 cm, and 8 cm. Performing Provider:: Terry Gomez MD Referring Provider:: . Sedation:: Monitored anesthesia care Procedure:: After informed consent was obtained the patient was taken to the endoscopy suite. Sedation ensued after the patient was transferred to the left lateral decubitus position. Pulse, blood pressure, and oxygen saturation were monitored throughout the procedure. Digital rectal exam revealed no significant abnormality. The colonoscope was placed in position. The entire colon was evaluated. The colonoscope was carefully removed and the patient was transferred to recovery in stable condition. Please see findings and specimens below for detail. Findings:: Bowel preparation fair to moderate Scattered sigmoid diverticulosis Hemorrhoidal cushions Prior tattoo site at 65 cm appeared normal Complex polyps (see specimens) Specimens:: Sessile proximal right colon polyp (cold snare) Adjacent hepatic flexure polyps (cold snare) Adjacent polyps at 30 cm (cold snare) Recommendations:: Timing of repeat colonoscopy is pending pathology but will likely be around 2 years secondary to history of significant polyps and polyps on short-term repeat evaluation. Complications:: No immediate Estimated blood obtained (mL): 1
== END 2021-11-23 10:32 | disposition home or self-care (01) ==
LOC: OUTP 08:22
PROVIDERS: PCP Family Medicine; Visit Provider Surgery
PROC: 0DJD8ZZ Inspection of Lower Intestinal Tract, Via Natural or Artificial Opening Endoscopic (ICD-10-PCS; CPT 45385; principal; 2021-11-23 09:30)
DX: Z12.11 Encounter for screening for malignant neoplasm of colon (principal); Z86.010 Personal history of colon polyps; K57.30 Diverticulosis of large intestine without perforation or abscess without bleeding; K64.9 Unspecified hemorrhoids; K63.5 Polyp of colon; E78.5 Hyperlipidemia, unspecified; I10 Essential (primary) hypertension; Q24.9 Congenital malformation of heart, unspecified; I25.10 Atherosclerotic heart disease of native coronary artery without angina pectoris; G47.33 Obstructive sleep apnea (adult) (pediatric); Z87.442 Personal history of urinary calculi
CPT/HCPCS: 45385

== ENCOUNTER 2022-03-17 10:27 | Emergency (ER) | payer OTHER, SELFPAY ==
[2022-03-17 10:29] VITALS: BP 174/110; PULSE 72; RESP 16; TEMP 36.8; O2SAT 98; BMI 32.5
--- NOTE | 2022-03-17 10:46 | XR_ITS ---
FINAL REPORT CLINICAL HISTORY: cough COMPARISON: 06/17/2021 FINDINGS: The heart size is normal. Postoperative changes are seen from sternotomy. The mediastinum is normal. There is no focal infiltrate or edema. There are no pleural effusions. There is no pneumothorax. There is no osseous abnormality. IMPRESSION: No acute cardiopulmonary process Reviewed, Interpreted and Dictated by Fernando Valiente III, MD Transcribed by Bro Doshi Authenticated and [facility]
--- NOTE | 2022-03-17 10:51 | HMH.EDGENADL ---
ED Disposition Clinical Impression: COVID-19, Fatigue Disposition: Home, Self-Care Condition on Discharge: Good Instructions: DI for Fatigue, DI for Muscle Weakness, DI for COVID-19 (Suspected or Confirmed ) Additional Instructions: You were evaluated in the emergency department today for fatigue and generalized weakness. At this time, I feel that this is due to your recent COVID-19 infection. Your labs do not indicate any acute bacterial infection at this time. It is important that you follow-up with your primary care provider for reassessment. Make sure that she stay orally hydrated at home is much as possible. Take Tylenol and ibuprofen at home as needed for body aches and headache. We are sending in a prescription for Tessalon Perles to the pharmacy for you to use as needed for cough. Return to the emergency department for any new or worsening symptoms. Prescriptions: Benzonatate 200 mg PO TIDP PRN #20 cap PRN Reason: Cough Transmission Status: Received by [facility] #[id number] Referrals: Kamlesh De Jesus MD [Primary Care Provider] - - Critical Care Critical Care Time: No Attestation: On 03/17/22, the high probability of a clinically significant, sudden or life threatening deterioration of the following system(s) required my full and direct attention, intervention and personal management. The time I documented below is in addition to time spent performing reported procedures but includes the following listed in this critical care notation. Medical Decision Making - Epi Inquiry Pt receiving controlled substance: No Vital Signs: 03/17/22 10:29 03/17/22 11:00 03/17/22 11:30 Temperature 98.3 F Temperature Source Oral Pulse Rate 76 78 Pulse Rate [Radial] 72 Respiratory Rate 16 Blood Pressure 158/99 H 136/74 Blood Pressure [Right Arm] 174/110 H Blood Pressure Mean 118 94 Blood Pressure Mean [Right Arm] 131 02 Sat by Pulse Oximetry 98 98 96 Oxygen Delivery Method Room Air Room Air 03/17/22 12:00 03/17/22 12:31 03/17/22 13:24 Temperature 98.3 F Temperature Source Oral Pulse Rate 72 64 70 Pulse Rate [Radial] Respiratory Rate 18 Blood Pressure 132/77 122/68 122/70 Blood Pressure [Right Arm] Blood Pressure Mean 95 86 Blood Pressure Mean [Right Arm] 02 Sat by Pulse Oximetry 97 96 Oxygen Delivery Method Room Air - Lab Data Lab Results 03/17/22 11:05: WBC 9.4, RBC 5.03, Hgb 15.2, Hct 45.8, MCV 91.1, MCH 30.2, MCHC 33.2, RDW 13.5, Plt Count 338, MPV 8.0, Neut % (Auto) 79.8, Lymph % (Auto) 8.6 L, [place] % (Auto) 9.7 H, Eos % (Auto) 1.4, Baso % (Auto) 0.4, Neut # (Auto) 7.5, Lymph # (Auto) 0.8, [place] # (Auto) 0.9, Eos # (Auto) 0.1, Baso # (Auto) 0.0 03/17/22 11:05: Sodium 140, Potassium 4.0, Chloride 106, Carbon Dioxide 26, Anion Gap 12.0, BUN 16, Creatinine 0.90, Estimated Creat Clear 120, Estimated GFR 86, Est GFR ( Amer) 104, Glucose 106 H, Calcium 9.0, Magnesium 1.9, Total Bilirubin 0.9, AST 38, ALT 43, Alkaline Phosphatase 123, Total Protein 6.7, Albumin 4.0, Globulin 2.7, Albumin/Globulin Ratio 1.5 Result diagrams: 03/17/22 11:05 03/17/22 11:05 Orders (Tests/Meds): ED MEDICATIONS Discontinued Medications Generic Name Dose Route Start Last Admin Trade Name Freq PRN Reason Stop Dose Admin Acetaminophen 1,000 mg 03/17/22 10:46 03/17/22 11:12 Acetaminophen 500mg Tab PO 03/17/22 10:47 1,000 mg ONCE ONE Administration Lactated Ringer's 1,000 mls @ 999 mls/hr 03/17/22 11:00 03/17/22 11:12 Lactated Ringer's 1000 Ml Bag IV 03/17/22 12:00 999 mls/hr .Q1H1M WILLIS Administration Ketorolac Tromethamine 15 mg 03/17/22 10:46 03/17/22 11:13 Ketorolac 30mg/Ml Vial IV 03/17/22 10:47 15 mg ONCE ONE Administration ORDERS Category Date Time Status EKG Request [ECG Request by /Itzel] Stat Y 03/17/22 10:51 Ordered Medical Decision Narrative: In summary, this patient is a 62-year-old male with a history of CAD st
[2022-03-17 11:00] VITALS: BP 158/99; PULSE 76; O2SAT 98
[2022-03-17 11:26] LABS: Basophils % 0.4 % (0.1-2.0); Eosinophils # 0.1 K/mm3 (0.0-0.4); Eosinophils % 1.4 % (0.1-12.0); Hematocrit 45.8 % (42.0-52.0); Hemoglobin 15.2 g/dL (14.1-18.0); Lymphocytes # 0.8 K/mm3 (0.7-4.5); Lymphocytes % 8.6 % (10-50); Mean Corpuscular HGB Conc 33.2 g/dL (31.8-35.4); Mean Corpuscular Hemoglobin 30.2 pg (27.0-31.2); Mean Corpuscular Volume 91.1 fl (80-94); Monocytes # 0.9 K/mm3 (0.1-1.0); Monocytes % 9.7 % (1.7-9.3); Neutrophils # 7.5 K/mm3 (1.8-7.8); Neutrophils % 79.8 % (37.0-80.0); Platelet Count 338 K/mm3 (142-424); Red Blood Count 5.03 M/mm3 (4.60-6.20); Red Cell Distribution Width 13.5 % (11.5-17.5); White Blood Count 9.4 K/mm3 (4.8-10.8)
[2022-03-17 11:27] LABS: Sodium 140 mmol/L (136-145)
[2022-03-17 11:28] LABS: Chloride 106 mmol/L (98-107)
[2022-03-17 11:29] LABS: Alanine Aminotransferase 43 U/L (12-78); Albumin/Globulin Ratio 1.5 (1.1-1.8); Alkaline Phosphatase 123 U/L (38-126); Aspartate Amino Transferase 38 U/L (17-59); Bilirubin,Total 0.9 mg/dl (0.2-1.3); Blood Urea Nitrogen 16 mg/dl (9-20); Creatinine Clearance Estimated 120 mL/min (50-200); Estimated Glomerular Filt Rate 86 ml/min (>60); GFR (African American) 104 ML/MIN (>60); Globulin 2.7 g/dL (1.3-3.2); Glucose 106 mg/dl (74-100); Total Protein,Serum 6.7 g/dl (6.3-8.2)
[2022-03-17 11:30] VITALS: BP 136/74; PULSE 78; O2SAT 96
[2022-03-17 11:30] LABS: Magnesium 1.9 mg/dl (1.6-2.3)
--- NOTE | 2022-03-17 11:53 | PC.NURSE ---
Rounded on patient at this time, pt requested a warm blanket. He is lying on Ed stretcher resting, call light within reach. Aware that we are waiting on test results to come back.
[2022-03-17 12:00] VITALS: BP 132/77; PULSE 72; O2SAT 97
[2022-03-17 12:14] LABS: Carbon Dioxide 26 mmol/L (22.0-30.0)
[2022-03-17 12:31] VITALS: BP 122/68; PULSE 64; O2SAT 96
[2022-03-17 13:24] VITALS: BP 122/70; PULSE 70; RESP 18; TEMP 36.8; O2SAT 99
== END 2022-03-17 13:24 | disposition home or self-care (01) ==
PROVIDERS: Emergency Provider Emergency Medicine; PCP Family Medicine
DX: R10.9 Unspecified abdominal pain (principal); R53.1 Weakness; R51.9 Headache, unspecified; R53.81 Other malaise; R19.7 Diarrhea, unspecified; R63.4 Abnormal weight loss; Z86.16 Personal history of COVID-19; I10 Essential (primary) hypertension; I25.10 Atherosclerotic heart disease of native coronary artery without angina pectoris; K21.9 Gastro-esophageal reflux disease without esophagitis; E78.5 Hyperlipidemia, unspecified; G47.33 Obstructive sleep apnea (adult) (pediatric); Q24.9 Congenital malformation of heart, unspecified; Z79.01 Long term (current) use of anticoagulants; Z79.02 Long term (current) use of antithrombotics/antiplatelets; Z79.899 Other long term (current) drug therapy; Z88.5 Allergy status to narcotic agent; Z88.6 Allergy status to analgesic agent; Z95.1 Presence of aortocoronary bypass graft; Z68.32 Body mass index [BMI] 32.0-32.9, adult
CPT/HCPCS: 71045; 80053; 83735; 85025; 96374; 99284

== ENCOUNTER 2022-07-24 23:38 | Observation (INO) | payer OTHER, SELFPAY ==
--- NOTE | 2022-07-24 23:31 | ECG_ITS ---
APPROVED REPORT Exam: Resting ECG HR:64 bpm ECG Measurements Heart Rate 64 AXES [place] 180 P -6 QRSd 102 QRS -4 QT 409 T 12 QTc 418 Conclusion SINUS RHYTHM NORMAL ECG UNCONFIRMED REPORT Electronically signed by : Mich Parekh MD 07/25/2022 11:11:06
[2022-07-24 23:38] VITALS: BP 180/110; PULSE 67; RESP 16; TEMP 36.5; O2SAT 95; BMI 32.8
--- NOTE | 2022-07-24 23:56 | XR_ITS ---
PROCEDURE INFORMATION: Exam: XR Chest Exam date and time: 07/24/2022 11:53 PM Age: 62 years old Clinical indication: Pain; Chest pressure; Additional info: Chest pain TECHNIQUE: Imaging protocol: Radiologic exam of the chest. Views: 2 views. COMPARISON: CR XR CHEST PORTABLE 03/17/2022 11:23 AM FINDINGS: Lungs: Unremarkable. No consolidation. Pleural spaces: Unremarkable. No pleural effusion. No pneumothorax. Heart/Mediastinum: Unremarkable. No cardiomegaly. Bones/joints: Median sternotomy. IMPRESSION: No acute findings.
[2022-07-25] VITALS (42 sets, daily range): BP systolic 115–177; BP diastolic 70–118; PULSE 54–133; RESP 12–28; TEMP 36.3–43; O2SAT 90–98; BMI 31.9
[2022-07-25 00:04] LABS: Basophils # 0.1 K/mm3 (0-0.2); Basophils % 0.9 % (0.1-2.0); Eosinophils # 0.2 K/mm3 (0.0-0.4); Eosinophils % 3.3 % (0.1-12.0); Hematocrit 49.3 % (42.0-52.0); Hemoglobin 16.7 g/dL (14.1-18.0); Lymphocytes # 1.4 K/mm3 (0.7-4.5); Mean Corpuscular HGB Conc 33.8 g/dL (31.8-35.4); Mean Corpuscular Volume 91.9 fl (80-94); Mean Platelet Volume 7.9 fl (7.4-10.4); Monocytes # 0.8 K/mm3 (0.1-1.0); Monocytes % 12.2 % (1.7-9.3); Neutrophils % 61.6 % (37.0-80.0); Platelet Count 219 K/mm3 (142-424); Red Blood Count 5.37 M/mm3 (4.60-6.20); Red Cell Distribution Width 14.3 % (11.5-17.5); White Blood Count 6.4 K/mm3 (4.8-10.8)
[2022-07-25 00:12] LABS: Alanine Aminotransferase 64 U/L (12-78); Albumin Level 4.4 g/dl (3.5-5.0); Albumin/Globulin Ratio 1.6 (1.1-1.8); Alkaline Phosphatase 109 U/L (38-126); Anion Gap 12.7 mEq/L (5-15); Aspartate Amino Transferase 54 U/L (17-59); Bilirubin,Total 0.6 mg/dl (0.2-1.3); Blood Urea Nitrogen 32 mg/dl (9-20); Calcium 9.3 mg/dl (8.4-10.2); Carbon Dioxide 28 mmol/L (22.0-30.0); Chloride 102 mmol/L (98-107); Creatinine Clearance Estimated 91 mL/min (50-200); Estimated Glomerular Filt Rate 62 ml/min (>60); GFR (African American) 75 ML/MIN (>60); Globulin 2.7 g/dL (1.3-3.2); Glucose 119 mg/dl (74-100); Potassium 3.7 mmoL/L (3.5-5.1); Sodium 139 mmol/L (136-145); Total Protein,Serum 7.1 g/dl (6.3-8.2)
[2022-07-25 00:25] LABS: Troponin I < 0.01 ng/ml (0.00-0.034)
--- NOTE | 2022-07-25 00:35 | CT_ITS ---
PROCEDURE INFORMATION: Exam: CT Abdomen And Pelvis With Contrast Exam date and time: 07/25/2022 12:53 AM Age: 62 years old Clinical indication: Abdominal pain; Epigastric; Additional info: Epigastric pain TECHNIQUE: Imaging protocol: Computed tomography of the abdomen and pelvis with contrast. Total images: 348 Radiation optimization: All CT scans at this facility use at least one of these dose optimization techniques: automated exposure control; mA and/or kV adjustment per patient size (includes targeted exams where dose is matched to clinical indication); or iterative reconstruction. Contrast material: ISOVUE; Contrast volume: 75 ml; Contrast route: IV; COMPARISON: CT ABDOMEN PELVIS W CON 06/17/2021 5:36 PM FINDINGS: Tubes, catheters and devices: Epicardial pacer leads. Lungs: Subpleural scarring and/or atelectasis. Benign granulomatous disease of the lung is noted. Liver: Normal. No mass. Gallbladder and bile ducts: Gallbladder is distended with a small amount of pericholecystic edema/inflammation, nonspecific but conceivably early evidence of acute cholecystitis. Pancreas: Normal. No ductal dilation. Spleen: Normal. No splenomegaly. Adrenal glands: Normal. No mass. Kidneys and ureters: Unchanged 10 mm likely benign left renal cyst requiring no further evaluation. Otherwise, unremarkable. Stomach and bowel: Unremarkable. No obstruction. No mucosal thickening. Appendix: Normal appendix. Intraperitoneal space: Unremarkable. No free air. No significant fluid collection. Vasculature: Unremarkable. No abdominal aortic aneurysm. Lymph nodes: Unremarkable. No enlarged lymph nodes. Urinary bladder: Unremarkable as visualized. Reproductive: Prostatomegaly. The prostate gland contains benign-appearing calcifications that are likely parenchymal. Bones/joints: Changes of sternotomy are noted. Soft tissues: Fat-containing umbilical hernia is present without inflammation. IMPRESSION: 1. Gallbladder is distended with a small amount of pericholecystic edema/inflammation, nonspecific but conceivably early evidence of acute cholecystitis. If symptoms are potentially referrable to this region, ultrasound could be considered to further define. 2. Normal appendix.
[2022-07-25 00:52] LABS: Amylase 78 U/L (30-110); Lipase 192 U/L (23-300)
--- NOTE | 2022-07-25 02:01 | HMH.EDGENADL ---
Discharge Plan Disposition Patient Disposition: Still a Patient Condition: Fair Prescriptions Prescriptions: No Action pravastatin 40 mg tablet 40 mg PO DAILY propranolol 120 mg capsule,extended release 24 hr 120 mg PO DAILY Qty: 90 3RF Rx Instructions: take one capsule by mouth once daily clopidogrel 75 mg tablet 75 mg PO DAILY Qty: 90 3RF cetirizine 10 MG tablet 10 mg PO DAILY Referrals Follow up/Referrals: Kamlesh De Jesus MD [Primary Care Provider] - See instructions Clinical Impressions Clinical Impression: Gall bladder disease, Abdominal pain, epigastric Discharge ED Provider: Liu Valencia General Adult HPI <Liu Valencia MD - Last Filed: 07/25/22 08:42> General Chief complaint: Chest Pain Stated complaint: chest pain Time Seen by Provider: 07/25/22 02:01 Mode of Arrival: Ambulatory Source of Information: Patient and Medical Record Limitations: No Limitations Description of Symptoms (Recalled from ER Triage Doc. by RN): pt c/o of chest pain at 8pm. pt states that he intially thought it was heart burn and that he went History of Present Illness HPI narrative: pt presents with lower chest pain and upper abd pain - had hx of cabg- pt with no sig gerd - Onset (ago): hour(s) Location: chest and abdomen Severity: moderate Associated symptoms: denies other symptoms Related Data Home Medications Medication Instructions Recorded Confirmed cetirizine 10 mg tablet 10 mg PO DAILY ALLERGIES 09/14/17 07/25/22 pravastatin 40 mg tablet 40 mg PO DAILY Cholesterol 02/03/21 07/25/22 Previous Rx's Medication Instructions Recorded propranolol 120 mg capsule,24 120 mg PO DAILY HTN #90 caps 04/08/22 hr,extended release clopidogrel 75 mg tablet 75 mg PO DAILY Blood thinner #90 05/05/22 tabs Allergies Allergy/AdvReac Type Severity Reaction Status Date / Time codeine Allergy Mild Verified 05/27/22 13:28 aspirin Allergy Verified 05/27/22 13:28 hydrocodone AdvReac Verified 05/27/22 13:28 PFSH <Liu Valencia MD - Last Filed: 07/25/22 08:42> [facility] [place] Disclaimer: The information contained in this section may have been updated after the patient was seen, as this information can be updated by other users. 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 current occupational exposures/hazards: No caffeine: Yes <Liu Valencia MD - Last Filed: 07/25/22 08:42> ROS Obtained: Yes All systems reviewed & no additional complaints except as documented Physical Exam <Liu Valencia MD - Last Filed: 07/25/22 08:42> General General appearance: alert and obese Head Head exam: normocephalic Eye Eye exam: Present PERRL and EOMI; Absent scleral icterus ENT ENT exam: Present normal exam Neck Neck exam: Present trachea midline Respiratory Respiratory exam: Present normal lung sounds bilaterally; Absent respiratory distress Cardiovascular Cardiovascular exam: Present regular rate and systolic murmur Abdominal Exam Abdominal exam: Present soft, tenderness and Mckeon's sign Abdominal tenderness: Present RUQ, epigastrium and moderate Extremities Exam Extremities exam: Present full ROM Back Exam Back exam: Absent CVA tenderness (R) Neurological Exam Neurological exam: Present alert, oriented X3 and CN II-XII intact; Absent motor sensory deficit
[2022-07-25 03:14] LABS: Troponin I < 0.01 ng/ml (0.00-0.034)
--- NOTE | 2022-07-25 03:42 | US_ITS ---
PROCEDURE INFORMATION: Exam: US Abdomen, Limited; Right Upper Quadrant Exam date and time: 07/25/2022 7:49 AM Age: 62 years old Clinical indication: Abnormal findings; Abnormal radiologic finding of the abdomen; Radiologic exam and body structure: Ruq; Additional info: Abnormal CT scan TECHNIQUE: Imaging protocol: Real time ultrasound of the abdomen with image documentation. Limited exam focused on the right upper quadrant. COMPARISON: US ABDOMEN COMPLETE 01/23/2020 9:06 AM FINDINGS: Liver: Mild fatty infiltration throughout the liver. No masses or enlargement detected. Gallbladder: There is a mild amount of dependent sludge within the gallbladder which is otherwise unremarkable. There are no gallstones or wall thickening. Ultrasonic Mckeon sign was not reported. Biliary ducts: Common bile duct is not dilated measuring 2 mm. Pancreas: Pancreas is not well visualized due to obscuring bowel loops. Right kidney: Normal. No mass. No hydronephrosis. IMPRESSION: 1. Mild amount of dependent sludge within the gallbladder which is otherwise unremarkable. 2. Mild fatty infiltration of liver. 3. Limited assessment of the pancreas
[2022-07-25 05:19] LABS: Troponin I < 0.01 ng/ml (0.00-0.034)
--- NOTE | 2022-07-25 07:33 | PC.NURSE ---
pt ambulatory to restroom without complication
--- NOTE | 2022-07-25 07:39 | PC.NURSE ---
Notified pt per radiology they will be down soon to transport pt upstairs for gallbladder ultrasound. Pt requesting medication for pain, notified ER MD, verbal order received.
--- NOTE | 2022-07-25 07:46 | PC.NURSE ---
pt to ultrasound via wheelchair
--- NOTE | 2022-07-25 07:54 | PC.NURSE ---
pt to radiology via wc with exhaust emissions automotive technician
--- NOTE | 2022-07-25 08:18 | PC.NURSE ---
pt return from ultrasound
--- NOTE | 2022-07-25 08:18 | PC.NURSE ---
rad staff gave ER MD Valencia verbal report at this time
--- NOTE | 2022-07-25 08:42 | PC.NURSE ---
awaiting call back from Dr. Michael
--- NOTE | 2022-07-25 08:44 | PC.NURSE ---
Dr. Valencia at given patient an update on POC
--- NOTE | 2022-07-25 09:16 | PC.NURSE ---
Dr. hurtado speaking with Dr. Michael at this time
--- NOTE | 2022-07-25 09:16 | PC.NURSE ---
DR. MUSTAFA SPEAKING WITH SURGEON
--- NOTE | 2022-07-25 09:18 | PC.NURSE ---
DR. MUSTAFA SPEAKING WITH HOSPITALIST
--- NOTE | 2022-07-25 09:21 | PC.NURSE ---
notified housekeeping director of admission
[2022-07-25 09:28] LABS: Coronavirus 19, PCR Not Detected (NotDetected); Influenza A, PCR Not Detected (NotDetected); Influenza B, PCR Not Detected (NotDetected)
--- NOTE | 2022-07-25 09:51 | PC.NURSE ---
REPORT GIVEN TO Ciera PENN RN
--- NOTE | 2022-07-25 09:57 | PC.NURSE ---
PT AND FAMILY UPDATED AT THIS TIME.
--- NOTE | 2022-07-25 10:14 | HMH.PHAINT1 ---
Pharmacy Intervention Comments: MEDICATION RECONCILIATION COMPLETED ON PATIENT USING EXTERNAL FILL HISTORY FROM PHARMACY. -FARIDEH ALCOCER, RHONDAD
--- NOTE | 2022-07-25 10:39 | PC.NURSE ---
arrived to floor by wheelchair from ED
--- NOTE | 2022-07-25 12:14 | EXP.SURG.CON ---
History of Present Illness *Admission Date: 07/25/22 *Reason for visit:: Epigastric pain, gallbladder wall thickening on CT *History of present illness: Patient is a 62-year-old male with history of coronary artery disease who underwent previous bypass grafting. He had developed lower chest pain and epigastric pain in the evening of 07/24/2022. This persisted and he presented to the emergency department in the evening of 07/24/2022. He underwent prolonged thorough evaluation. Laboratory evaluation was unremarkable. His CT scan revealed findings of gallbladder is distended with small amount of pericholecystic edema/inflammation, nonspecific but could conceivably early evidence of acute cholecystitis. If symptoms are potentially referable to this region, ultrasound could be considered to further define. Due to the patient's persistent symptoms and findings on CT scan surgery was contacted. Recommendations were for inpatient management for probable refractory biliary colic. He did undergo subsequent ultrasound of the gallbladder. This reveals findings of mild amount of dependent sludge within the gallbladder which is otherwise unremarkable. There are no gallstones or gallbladder wall thickening or ultrasonic Mckeon sign or pericholecystic fluid. He does state that he had a similar episode about a year and a half ago but this was more self-limited and not as prolonged. Patient states he still is unable to get comfortable with severe upper abdominal pain radiating into his back. He is unable to lay flat. [facility] Disclaimer: The information contained in this section may have been updated after the patient was seen, as this information can be updated by other users. Medical History Abdominal pain Anomalous aortic origin of coronary artery Gastroesophageal reflux disease HLD (hyperlipidemia) HTN (hypertension) NELA (obstructive sleep apnea) Surgical History History of coronary artery bypass graft Family History (Updated 07/25/22 @ 11:22 by Tomasa Rizzo RN) Family history of stroke Coronary artery disease Lung cancer Hypertension Social History (Updated 07/25/22 @ 11:24 by Tomasa Rizzo RN) Smoking Status: Never smoker second hand exposure: No alcohol intake: never substance use type: denies use current occupational status: employed Travel in the last 8 weeks: None household members: spouse housing: house current occupation: real estate loan officer current occupational exposures/hazards: No caffeine: Yes Meds Home Medications and Allergies Home Medications Medication Instructions Recorded Confirmed Type cetirizine 10 mg tablet 10 mg PO DAILY Allergy symptoms 09/14/17 07/25/22 History pravastatin 40 mg tablet 40 mg PO DAILY Cholesterol 02/03/21 07/25/22 History clopidogrel 75 mg tablet 75 mg PO DAILY PLATELET INHIBITOR 07/25/22 07/25/22 History propranolol 120 mg capsule,24 120 mg PO DAILY Hypertension 07/25/22 07/25/22 History hr,extended release New Prescriptions to Start Prescriptions: Allergies Allergy/AdvReac Type Severity Reaction Status Date / Time codeine Allergy Mild Verified 05/27/22 13:28 aspirin Allergy Verified 05/27/22 13:28 hydrocodone AdvReac Verified 05/27/22 13:28 Exam (Inpt) Vital signs and Labs for Last 24 Hours: Temp Pulse Resp BP Pulse Ox 97.8 F 66 16 177/95 H 97 07/25/22 10:54 07/25/22 10:54 07/25/22 10:54 07/25/22 10:54 07/25/22 10:54 Laboratory Results - last 24 hr 07/24/22 23:41: Sodium 139, Potassium 3.7, Chloride 102, Carbon Dioxide 28, Anion Gap 12.7, BUN 32 H, Creatinine 1.20, Estimated Creat Clear 91, Estimated GFR 62, Est GFR ( Amer) 75, Glucose 119 H, Calcium 9.3, Total Bilirubin 0.6, AST 54, ALT 64, Alkaline Phosphatase 109, Troponin I < 0.01, Total Protein 7.1, Albumin 4.4, Globulin 2.7, Albumin/Globulin Ratio 1
--- NOTE | 2022-07-25 15:10 | EXP.OP.NOTE ---
Date of procedure: 07/25/22 Pre-op Diagnosis:: Acute cholecystitis Post-op Diagnosis:: Same Procedure performed:: Laparoscopic cholecystectomy Surgeon:: Fernando Michael MD CERTIFIED FIRE INVESTIGATOR:: Other Anesthesia: GETA Estimated blood loss (mL): 35 Clinical Note:: Patient is a 62-year-old male with history of coronary artery disease who underwent previous bypass grafting for anomalous coronary artery who is on chronic Plavix.? He had developed lower chest pain and epigastric pain in the evening of 07/24/2022.? This persisted and he presented to the emergency department in the evening of 07/24/2022.? He underwent prolonged thorough evaluation. Laboratory evaluation was unremarkable.? His CT scan revealed findings of possible nonspecific gallbladder edema/inflammation.? Due to the patient's persistent symptoms and findings on CT scan surgery was contacted.? Recommendations were for inpatient management for probable refractory biliary colic.? He did undergo subsequent ultrasound of the gallbladder.? This reveals findings of mild amount of dependent sludge within the gallbladder which is otherwise unremarkable. ? There were no gallstones or gallbladder wall thickening or ultrasonic Mckeon sign or pericholecystic fluid.? He does state that he had a similar episode about a year and a half ago but this was more self-limited and not as prolonged.? After admission patient was still quite uncomfortable and unable to lay flat. On examination he had findings consistent with clinical acute cholecystitis. Plan was made to proceed with cholecystectomy. Operative findings:: Patient had a severely acutely inflamed markedly distended gallbladder with significant gallbladder thickening. There was a significant amount of pericholecystic fluid and edema in the surrounding tissues consistent with significant acute cholecystitis. There were possibly small stones in the neck of the gallbladder. Operative note:: Consent was obtained and patient was taken to the operating room. He was given preoperative intravenous antibiotics. In the operating room he was placed in a supine position. General anesthesia was induced via endotracheal tube. Abdomen was prepped and draped in the standard surgical fashion. Subumbilical incision was made. Dissection was carried down to subcutaneous tissues down to a very tiny noted umbilical hernia. The peritoneum of the hernia sac was dissected free from the umbilical subdermis. Hernia sac was opened and dissection was carried out circumferentially around this tiny hernia with electrocautery. 2-0 Vicryl stay sutures were placed laterally at the fascial edges. Villanueva blunt trocar was inserted and secured with the fascial stay sutures and CO2 pneumoperitoneum was achieved to 15 mmHg. Laparoscopic surveillance was carried out. He was positioned in reverse Trendelenburg left side down. A couple of 5 mm trochars were inserted in the right upper abdomen. 10 mm trocar was inserted in the epigastrium. Gallbladder was identified. It was found to be significantly acutely inflamed and distended with thickening of the gallbladder wall. It was quite tense. Laparoscopic needle aspirator was then used to decompress the gallbladder. Thick biliary sludge was aspirated from the gallbladder. Gallbladder was then grasped and retracted anteriorly and superiorly over the dome of the liver. There was a significant amount of thickening of the gallbladder and edema in the surrounding tissues. Ultimately the cystic duct was identified and isolated. Cystic artery was identified as well. The cystic duct was isolated, multiply clipped, and sharply divided. Cystic artery was carefully coagulated with MARCUS ultrasonic harmonic zari and then divided. Gallbladder was dissected free from the liver in a retrograde fashion using MARCUS ultrasonic harmonic zari. Gallbladder was placed within an Endo Catch retrieval device and removed from the peritoneal cavity via the umbilical trocar site wh
--- NOTE | 2022-07-25 15:31 | EXP.ANES.CKL ---
[facility] Disclaimer: The information contained in this section may have been updated after the patient was seen, as this information can be updated by other users. Medical History Abdominal pain Anomalous aortic origin of coronary artery Gastroesophageal reflux disease HLD (hyperlipidemia) HTN (hypertension) NELA (obstructive sleep apnea) Surgical History History of coronary artery bypass graft Family History (Updated 07/25/22 @ 11:22 by Tomasa Rizzo RN) Other Coronary artery disease Family history of stroke Hypertension Lung cancer Social History (Updated 07/25/22 @ 11:24 by Tomasa Rizzo RN) Smoking Status: Never smoker second hand exposure: No alcohol intake: never substance use type: denies use current occupational status: employed Travel in the last 8 weeks: None household members: spouse housing: house current occupation: executive office manager current occupational exposures/hazards: No caffeine: Yes [facility] Anesthesia Checklist Patient Identification Patient Identification: Arm Band and Family Structural Data Admitted From: Inpatient Planned Operative Procedure/s: lap Cholecystectomy Consent for Planned Operative Procedure(s) Verified: Yes Verified Documents: Surgical Consent and History and Physical NPO Status Verified Time NPO: 00:00 Additional verifications Patient : No Anesthesia Reactions: No Hx Blood Transfusions: No Blood Transfusion Reaction: No Cephalosporin Allergy: No Previous Colonoscopy: Yes Airway Assessment C-Spine Mobility Assessed: Yes TMJ Mobility Assessed: Yes Dentition: Good Dentition Neurological Assessment Level of Consciousness: Awake, Alert, Appropriate and Follows Commands Hx Seizures: No Numbness or tingling in extremities: No Anesthesia Plan ASA Class: II Anesthesia Type: General Preoperative Comments Pre-Operative Comments: Severe Abdominal pain.
--- NOTE | 2022-07-25 15:32 | SUR.PHASEI ---
anesthesia made aware of elevated bp. Shelby KRAMER to give medication.
--- NOTE | 2022-07-25 15:37 | P.PNANES_ITS ---
[facility] Anesthesia Record Part I Anesthesia Record I Intake, IV Amount: 1,100 Estimated blood loss (mL): 15 Urine output (mL): 0 Blood Products used (#): none Blood Pressure: 163/93 SaO2: 96 Pulse Rate: 88 Respiratory Rate: 28 Temperature: 97.4 F Patient is:: Drowsy and Stable Stable to PACU at:: 15:19
--- NOTE | 2022-07-25 16:41 | EXP.HP ---
History of Present Illness *Admission Date: 07/25/22 *Reason for visit:: Epigastric abdominal pain *History of present illness: Patient is a 62-year-old male with history of coronary artery disease who underwent previous bypass grafting. He had developed lower chest pain and epigastric pain in the evening of 07/24/2022. This persisted and he presented to the emergency department in the evening of 07/24/2022. He underwent prolonged thorough evaluation. Laboratory evaluation was unremarkable. His CT scan revealed findings of gallbladder is distended with small amount of pericholecystic edema/inflammation, nonspecific but could conceivably early evidence of acute cholecystitis. If symptoms are potentially referable to this region, ultrasound could be considered to further define. Due to the patient's persistent symptoms and findings on CT scan surgery was contacted. Recommendations were for inpatient management for probable refractory biliary colic. He did undergo subsequent ultrasound of the gallbladder. This reveals findings of mild amount of dependent sludge within the gallbladder which is otherwise unremarkable. There are no gallstones or gallbladder wall thickening or ultrasonic Mckeon sign or pericholecystic fluid. He does state that he had a similar episode about a year and a half ago but this was more self-limited and not as prolonged. Patient states he still is unable to get comfortable with severe upper abdominal pain radiating into his back. He is unable to lay flat. -The above is auto populated from Dr. Michael's surgery consult. 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 Patient and his report symptoms began about 4 days ago but became much worse late last night. He has had milder versions of this intermittently over the last year and a half. He did have some diarrhea over the weekend as well as some nausea, otherwise review of systems is negative, no chest pain, shortness of breath. [facility] Disclaimer: The information contained in this section may have been updated after the patient was seen, as this information can be updated by other users. Medical History (Updated 07/25/22 @ 16:50 by German Gonzalez MD) Abdominal pain Anomalous aortic origin of coronary artery Gastroesophageal reflux disease HLD (hyperlipidemia) HTN (hypertension) NELA (obstructive sleep apnea) Surgical History (Updated 07/25/22 @ 16:50 by German Gonzalez MD) History of coronary artery bypass graft Family History (Updated 07/25/22 @ 11:22 by Tomasa Rizzo, RN) Other Coronary artery disease Family history of stroke Hypertension Lung cancer Social History (Updated 07/25/22 @ 11:24 by Tomasa Rizzo, RN) Smoking Status: Never smoker second hand exposure: No alcohol intake: never substance use type: denies use current occupational status: employed Travel in the last 8 weeks: None household members: spouse housing: house current occupation: credit review officer current occupational exposures/hazards: No caffeine: Yes Review of Systems Constitutional Constitutional: Reports system reviewed and no additional complaints, except as documented, Denies chills, Reports fatigue, Denies fever(s), Denies headache(s), Denies increased appetite, Denies poor appetite and Denies weakness ENT Ears, Nose, Mouth, and Throat: Denies abnormal hearing, Denies dizziness, Denies dysphagia, Denies headache(s) and Denies mouth lesions *Cardiovascular Cardiovascular: Denies chest pain, Denies chest pain at rest, Denies dyspnea, Denies dyspnea on exertion, Denies edema and Denies leg edema *Respiratory Respiratory: Denies chest congestion, Denies cough, Denies dyspnea, Denies dyspnea on exertion
[2022-07-26] VITALS (8 sets, daily range): BP systolic 133–174; BP diastolic 82–93; PULSE 60–82; RESP 18–20; TEMP 36.8–37.2; O2SAT 95–96; BMI 31.8
--- NOTE | 2022-07-26 01:22 | PC.NURSE ---
Abdomen with four 2x2 tegaderm sites c/d/i.
--- NOTE | 2022-07-26 04:03 | PC.NURSE ---
Pt is alert and oriented times 4. He had his Gallbladder removed yesterday 07/25/22 and has only asked for some Tylenlol. He has 4 laps sites that have 2x2 and te[address]erm in place with no issues. He has been using the urinal with good UOP.
[2022-07-26 06:06] LABS: Basophils # 0.1 K/mm3 (0-0.2); Basophils % 1.6 % (0.1-2.0); Chloride 106 mmol/L (98-107); Eosinophils % 0.3 % (0.1-12.0); Hematocrit 42.6 % (42.0-52.0); Hemoglobin 14.5 g/dL (14.1-18.0); Lymphocytes # 0.8 K/mm3 (0.7-4.5); Lymphocytes % 9.3 % (10-50); Mean Corpuscular Hemoglobin 31.1 pg (27.0-31.2); Mean Corpuscular Volume 91.7 fl (80-94); Monocytes # 0.9 K/mm3 (0.1-1.0); Monocytes % 10.9 % (1.7-9.3); Neutrophils # 6.5 K/mm3 (1.8-7.8); Neutrophils % 77.9 % (37.0-80.0); Platelet Count 189 K/mm3 (142-424); Red Blood Count 4.65 M/mm3 (4.60-6.20); Red Cell Distribution Width 14.1 % (11.5-17.5); Sodium 138 mmol/L (136-145); White Blood Count 8.4 K/mm3 (4.8-10.8)
[2022-07-26 06:07] LABS: Potassium 3.8 mmoL/L (3.5-5.1)
[2022-07-26 06:09] LABS: Alanine Aminotransferase 272 U/L (12-78); Anion Gap 9.8 mEq/L (5-15); Aspartate Amino Transferase 266 U/L (17-59); Blood Urea Nitrogen 11 mg/dl (9-20); Carbon Dioxide 26 mmol/L (22.0-30.0); Creatinine Clearance Estimated 106 mL/min (50-200); Estimated Glomerular Filt Rate 76 ml/min (>60); GFR (African American) 92 ML/MIN (>60)
[2022-07-26 06:10] LABS: Albumin Level 3.1 g/dl (3.5-5.0); Albumin/Globulin Ratio 1.5 (1.1-1.8); Alkaline Phosphatase 164 U/L (38-126); Bilirubin,Total 5.2 mg/dl (0.2-1.3); Calcium 8.2 mg/dl (8.4-10.2); Globulin 2.1 g/dL (1.3-3.2); Glucose 96 mg/dl (74-100); Total Protein,Serum 5.2 g/dl (6.3-8.2)
[2022-07-26 06:32] LABS: Troponin I < 0.01 ng/ml (0.00-0.034)
--- NOTE | 2022-07-26 07:36 | EXP.ANES.II ---
[facility] Anesthesia Record Part II Anesthesia Record Part II Discharge Time: 15:59 Destination: Medical Surgical Department PACU nurse assessment reviewed?: Yes Patient Condition:: Good Anesthesia Complications:: None Swallowing reflex intact?: Yes Cyanosis?: No Blood Pressure: 155/85 Pulse Rate: 82 Temperature: 98.9 F Mental Status: Alert & Oriented Pain level:: 3 Nausea and/or vomitting:: None Intake, IV Amount: 0
--- NOTE | 2022-07-26 07:45 | P.PN_ITS ---
Subjective Narrative: Patient states that he feels much better. Some early satiety. Exam Data for Last 24 hours Vital signs and Labs for Last 24 Hours: Temp Pulse Resp BP Pulse Ox 98.9 F 82 20 155/85 H 95 07/26/22 07:37 07/26/22 07:37 07/26/22 00:00 07/26/22 07:37 07/26/22 00:00 Laboratory Results - last 24 hr 07/25/22 09:25: SARS-CoV-2 (PCR) Not detected, Influenza A Untype (PCR) Not detected, Influenza Type B (PCR) Not detected 07/26/22 05:31: Troponin I < 0.01 07/26/22 05:31: Magnesium 2.0 07/26/22 05:31: WBC 8.4 D, RBC 4.65, Hgb 14.5, Hct 42.6, MCV 91.7, MCH 31.1, MCHC 34.0, RDW 14.1, Plt Count 189, MPV 8.0, Neut % (Auto) 77.9, Lymph % (Auto) 9.3 L, [place] % (Auto) 10.9 H, Eos % (Auto) 0.3, Baso % (Auto) 1.6, Neut # (Auto) 6.5, Lymph # (Auto) 0.8, [place] # (Auto) 0.9, Eos # (Auto) 0.0, Baso # (Auto) 0.1 07/26/22 05:31: Sodium 138, Potassium 3.8, Chloride 106, Carbon Dioxide 26, Anion Gap 9.8, BUN 11 D, Creatinine 1.00, Estimated Creat Clear 106, Estimated GFR 76, Est GFR ( Amer) 92 D, Glucose 96, Calcium 8.2 L, Total Bilirubin 5.2 H, AST 266 H D, ALT 272 H D, Alkaline Phosphatase 164 H, Total Protein 5.2 L D, Albumin 3.1 L D, Globulin 2.1, Albumin/Globulin Ratio 1.5 I & O for Last 24 hours: Intake & Output 07/23/22 07/24/22 07/25/22 07/26/22 11:59 11:59 11:59 11:59 Intake Total 2595 / 2595 Output Total 3075 / 3075 Balance -480 / -480 Weight 210 lb 6 oz 210 lb 2 oz *Routine Abdominal Exam Abdominal: Present soft Comments: Dressings dry. Abdomen somewhat distended. Progress Note: A&P Assessment and plan (1) NELA (obstructive sleep apnea): Status: Chronic (2) HTN (hypertension): Status: Chronic (3) HLD (hyperlipidemia): Status: Chronic (4) History of coronary artery bypass graft: Status: Chronic (5) Anomalous aortic origin of coronary artery: Status: Chronic (6) Gastroesophageal reflux disease: Status: Chronic (7) Cholecystitis: Status: Acute Assessment and plan: LFT elevation concerning. May have choledocholithiasis or, less likely, CBD in jury. Will see about obtaining MRCP for diagnostic purposes. Could require ERCP which would require transfer to facility with gastroenterology availability. (8) S/P cholecystectomy: Status: Acute
--- NOTE | 2022-07-26 12:55 | MR_ITS ---
FINAL REPORT CLINICAL HISTORY: ELEVATED LFTS AFTER CHOLECYSTECTOMY FINDINGS: Multiplanar MR imaging of the abdomen was performed without and with contrast. Motion artifact is identified on many of the images. There is a small right pleural effusion. Images of the liver reveal no evidence of mass. There is no evidence of biliary ductal dilatation. There is a collection of fluid in the gallbladder fossa measuring 44 mm, may represent seroma, hematoma, or biloma. No filling defect is identified to suggest a bile duct stone. No other mass or adenopathy is identified. No abnormal contrast enhancement is seen on the postcontrast images. IMPRESSION: Collection of fluid in the gallbladder fossa, may represent seroma, hematoma, or biloma. Reviewed, Interpreted and Dictated by Fernando Valiente III, MD Transcribed by Melvi Gilliam Authenticated and [facility]
--- NOTE | 2022-07-26 18:20 | EXP.ACUTE.PN ---
Subjective *Date: 07/26/22 *Time: 18:20 Interval history: Patient with minimal abdominal pain. Denies nausea, chest pain, shortness of breath. Passing gas. Afebrile. Stable on room air. Labs this morning showed elevation in LFTs. Unclear etiology. Medical Exam Vital signs and Labs for Last 24 Hours: Vital Signs Temp Pulse Pulse Resp BP BP Pulse Ox 07/26/22 12:00 73 07/26/22 08:00 69 07/26/22 12:00 98.5 F 73 18 168/85 H 95 07/26/22 08:00 98.8 F 66 18 162/93 H 95 07/26/22 04:00 60 07/26/22 00:36 70 07/26/22 00:00 98.3 F 71 20 133/82 95 07/25/22 22:36 98.3 F 68 18 124/71 07/25/22 21:36 70 19 126/70 95 07/25/22 21:06 98.4 F 69 18 125/71 97 07/25/22 20:36 98.4 F 71 18 126/72 07/25/22 20:06 98.3 F 73 18 96 07/25/22 20:00 70 07/25/22 20:00 98.3 F 68 16 135/78 95 07/25/22 18:50 98.4 F 72 18 127/73 98 07/26/22 07:37 98.9 F 82 155/85 H Intake and Output 07/26/22 07/26/22 07/26/22 07:59 15:59 23:59 Intake Total 1015 / 1115 100 / 1115 Output Total 1549 Balance -535 / -860 -325 / -860 Intake: Intake, Oral Amount 240 / 340 100 / 340 Intake, Total IV Amount 775 / 775 0.9 % Sodium Chloride 1,000 ml 775 / 775 @ 75 mls/hr IV .[id number] [facility] Rx# :[id number] Output: Output, Urine Amount 1549 Other: Number of Unmeasured Voids 0 Weight 95.311 kg Patient Weight 07/26/22 23:59 Weight 95.311 kg Laboratory Results - last 24 hr 07/26/22 05:31: Troponin I < 0.01 07/26/22 05:31: Magnesium 2.0 07/26/22 05:31: WBC 8.4 D, RBC 4.65, Hgb 14.5, Hct 42.6, MCV 91.7, MCH 31.1, MCHC 34.0, RDW 14.1, Plt Count 189, MPV 8.0, Neut % (Auto) 77.9, Lymph % (Auto) 9.3 L, [place] % (Auto) 10.9 H, Eos % (Auto) 0.3, Baso % (Auto) 1.6, Neut # (Auto) 6.5, Lymph # (Auto) 0.8, [place] # (Auto) 0.9, Eos # (Auto) 0.0, Baso # (Auto) 0.1 07/26/22 05:31: Sodium 138, Potassium 3.8, Chloride 106, Carbon Dioxide 26, Anion Gap 9.8, BUN 11 D, Creatinine 1.00, Estimated Creat Clear 106, Estimated GFR 76, Est GFR ( Amer) 92 D, Glucose 96, Calcium 8.2 L, Total Bilirubin 5.2 H, AST 266 H D, ALT 272 H D, Alkaline Phosphatase 164 H, Total Protein 5.2 L D, Albumin 3.1 L D, Globulin 2.1, Albumin/Globulin Ratio 1.5 I & O for Labs for Last 24 Hours: Intake & Output 07/23/22 07/24/22 07/25/22 07/26/22 23:59 23:59 23:59 23:59 Intake Total 1580 / 1820 1115 / 1115 Output Total 1525 / 2325 1974 Balance 55 / -505 -860 / -860 Weight 97.976 kg 95.424 kg 95.311 kg Constitutional: Present no acute distress and obese Head: Present atraumatic and normocephalic ENT: Present normal exam Neck: Present normal inspection Respiratory: Present normal respiratory effort; Absent accessory muscle use, rhonchi, wheezes or crackles Cardiac: Present Reg Rate and Rhythm GI: Present soft, tenderness (Minimal, worse in right upper quadrant) and normal bowel sounds; Absent distention, guarding or rebound Extremities: Present normal inspection and full ROM Skin: Present intact; Absent erythema Comment:: Surgical incisions on abdomen clean dry and intact, dressings with no blood Neuro: Present Grossly Intact, alert, awake, oriented x 3 and moves all extremities Assessment and Plan *Assessment and plan (1) Cholecystitis: Status: Acute Category: Medical Code(s): K81.9 - Cholecystitis, unspecified (2) S/P cholecystectomy: Status: Acute Category: Surgical Code(s): Z90.49 - Acquired absence of other specified parts of digestive tract (3) Transaminitis: Status: Acute Category: Medical Code(s): R74.01 - Elevation of levels of liver transaminase levels (4) HTN (hypertension): Status: Chronic Qualifiers: Hypertension type: essential hypertension Qualified Code(s): I10 - Essential (primary) hypert
[2022-07-27] VITALS: BP 155/91; PULSE 81; RESP 20; TEMP 37; O2SAT 96
[2022-07-27 03:55] VITALS: BP 138/87; PULSE 68; RESP 18; TEMP 36.4; O2SAT 95
[2022-07-27 04:00] VITALS: BMI 31.8
--- NOTE | 2022-07-27 06:31 | PC.NURSE ---
NO ACUTE CHANGES SINCE PREVIOUS ASSESSMENT. PT HAS RESTED INTERMITTENTLY. LUNG SOUNDS CLEAR. REMAINS ON ROOM AIR, CPAP WHILE SLEEPING. AMBULATING IN ROOM TOLERATED. C/O A HEADACHE X1 THIS SHIFT AND WAS TREATED PER MAR WITH ADEQUATE RELIEF. NO C/O ABD PAIN, NAUSEA, OR VOMITING. VSS. CALL MAC WITHIN REACH.
[2022-07-27 06:56] LABS: Basophils # 0.1 K/mm3 (0-0.2); Basophils % 1.8 % (0.1-2.0); Eosinophils % 0.6 % (0.1-12.0); Lymphocytes % 14.9 % (10-50); Mean Corpuscular Hemoglobin 31.7 pg (27.0-31.2); Mean Corpuscular Volume 90.3 fl (80-94); Mean Platelet Volume 7.9 fl (7.4-10.4); Monocytes # 0.8 K/mm3 (0.1-1.0); Neutrophils # 4.9 K/mm3 (1.8-7.8); Neutrophils % 71.7 % (37.0-80.0); Platelet Count 167 K/mm3 (142-424); Red Blood Count 4.42 M/mm3 (4.60-6.20); Red Cell Distribution Width 14.1 % (11.5-17.5); White Blood Count 6.9 K/mm3 (4.8-10.8)
--- NOTE | 2022-07-27 07:42 | EXP.DC.SUM ---
General Admission date:: 07/25/22 Discharge date: 07/27/22 HPI HPI HPI: Patient is a 62-year-old male with history of coronary artery disease who underwent previous bypass grafting. He had developed lower chest pain and epigastric pain in the evening of 07/24/2022. This persisted and he presented to the emergency department in the evening of 07/24/2022. He underwent prolonged thorough evaluation. Laboratory evaluation was unremarkable. His CT scan revealed findings of gallbladder is distended with small amount of pericholecystic edema/inflammation, nonspecific but could conceivably early evidence of acute cholecystitis. If symptoms are potentially referable to this region, ultrasound could be considered to further define. Due to the patient's persistent symptoms and findings on CT scan surgery was contacted. Recommendations were for inpatient management for probable refractory biliary colic. He did undergo subsequent ultrasound of the gallbladder. This reveals findings of mild amount of dependent sludge within the gallbladder which is otherwise unremarkable. There are no gallstones or gallbladder wall thickening or ultrasonic Mckeon sign or pericholecystic fluid. He does state that he had a similar episode about a year and a half ago but this was more self-limited and not as prolonged. Patient states he still is unable to get comfortable with severe upper abdominal pain radiating into his back. He is unable to lay flat. -The above is auto populated from Dr. Michael's surgery consult. 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 Patient and his report symptoms began about 4 days ago but became much worse late last night. He has had milder versions of this intermittently over the last year and a half. He did have some diarrhea over the weekend as well as some nausea, otherwise review of systems is negative, no chest pain, shortness of breath. 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 Status postcholecystectomy yesterday.? Procedure went well.? Labs showed elevation in liver enzymes after procedure, have trended down prior to discharge. Surgery assisted in care, appreciate their recommendations.? Problems addressed as follows: //Cholecystitis //Status postcholecystectomy //Transaminitis -Laparoscopic cholecystectomy 07/25. Tolerated procedure well no complications. Liver enzymes elevated after procedure, was monitored for an extra day with improvement in liver enzymes. Trending toward normal. MRCP obtained showing no biliary dilatation or obstructive pathology. As he is passing gas, tolerating p.o. intake, stable for discharge home to continue to convalesce. Advance to regular diet at home. //CAD -Continue home Plavix and propranolol. Recommend resuming statin in a week. Follow-up with surgery for repeat labs and eval of incisions. Back to baseline function. Stable for discharge home Exam Data for Last 24 hours Vital signs and Labs for Last 24 Hours: Temp Pulse Resp BP Pulse Ox 97.5 F L 68 18 138/87 95 07/27/22 03:55 07/27/22 03:55 07/27/22 03:55 07/27/22 03:55 07/27/22 03:55 Laboratory Results - last 24 hr 07/27/22 06:22: WBC 6.9, RBC 4.42 L, Hgb 14.0 L, Hct 40.0 L, MCV 90.3, MCH 31.7 H, MCHC 35.0, RDW 14.1, Plt Count 167, MPV 7.9, Neut % (Auto) 71.7, Lymph % (Auto) 14.9, Craven % (Auto) 11.0 H, Eos % (Auto) 0.6, Baso % (Auto) 1.8, Neut # (Auto) 4.9, Lymph # (Auto) 1.0, Craven # (Auto) 0.8
[2022-07-27 07:43] LABS: Chloride 107 mmol/L (98-107); Sodium 137 mmol/L (136-145)
[2022-07-27 07:45] LABS: Amylase 59 U/L (30-110)
[2022-07-27 07:46] LABS: Alanine Aminotransferase 199 U/L (12-78); Albumin/Globulin Ratio 1.4 (1.1-1.8); Alkaline Phosphatase 164 U/L (38-126); Aspartate Amino Transferase 105 U/L (17-59); Bilirubin,Total 1.8 mg/dl (0.2-1.3); Blood Urea Nitrogen 12 mg/dl (9-20); Calcium 7.8 mg/dl (8.4-10.2); Carbon Dioxide 21 mmol/L (22.0-30.0); Creatinine Clearance Estimated 118 mL/min (50-200); Estimated Glomerular Filt Rate 86 ml/min (>60); GFR (African American) 104 ML/MIN (>60); Globulin 2.2 g/dL (1.3-3.2); Glucose 78 mg/dl (74-100); Lipase 201 U/L (23-300); Total Protein,Serum 5.2 g/dl (6.3-8.2)
[2022-07-27 08:00] VITALS: BP 138/99; PULSE 76; RESP 18; TEMP 36.6; O2SAT 96
--- NOTE | 2022-07-27 10:53 | P.PN_ITS ---
Subjective Patient reports: no new complaints and feels better Narrative: Patient states that he feels better. His urine is lightening up. MRCP revealed no filling defect or obstruction or injury. Exam Data for Last 24 hours Vital signs and Labs for Last 24 Hours: Temp Pulse Resp BP Pulse Ox 97.9 F 76 18 138/99 H 96 07/27/22 08:00 07/27/22 08:00 07/27/22 08:00 07/27/22 08:00 07/27/22 08:00 Laboratory Results - last 24 hr 07/27/22 06:22: WBC 6.9, RBC 4.42 L, Hgb 14.0 L, Hct 40.0 L, MCV 90.3, MCH 31.7 H, MCHC 35.0, RDW 14.1, Plt Count 167, MPV 7.9, Neut % (Auto) 71.7, Lymph % (Auto) 14.9, Kemper % (Auto) 11.0 H, Eos % (Auto) 0.6, Baso % (Auto) 1.8, Neut # (Auto) 4.9, Lymph # (Auto) 1.0, Kemper # (Auto) 0.8, Eos # (Auto) 0.0, Baso # (Auto) 0.1 07/27/22 06:22: Sodium 137, Potassium 4.0, Chloride 107, Carbon Dioxide 21 L, Anion Gap 13.0, BUN 12, Creatinine 0.90, Estimated Creat Clear 118, Estimated GFR 86, Est GFR ( Amer) 104, Glucose 78, Calcium 7.8 L, Total Bilirubin 1.8 H, AST 105 H D, ALT 199 H D, Alkaline Phosphatase 164 H, Total Protein 5.2 L , Albumin 3.0 L, Globulin 2.2, Albumin/Globulin Ratio 1.4, Amylase 59, Lipase 201 I & O for Last 24 hours: Intake & Output 07/24/22 07/25/22 07/26/22 07/27/22 11:59 11:59 11:59 11:59 Intake Total 2695 / 2695 780 / 780 Output Total 3075 / 3500 1345 / 1345 Balance -380 / -805 -565 / -565 Weight 210 lb 6 oz 210 lb 2 oz 210 lb 3 oz Constitutional Constitutional: no acute distress *Routine Abdominal Exam Abdominal: Present soft Progress Note: A&P Assessment and plan (1) Cholecystitis: Status: Acute Assessment and plan: Patient is to be discharged home. Follow-up in the office. (2) S/P cholecystectomy: Status: Acute (3) Transaminitis: Status: Acute (4) HTN (hypertension): Status: Chronic (5) HLD (hyperlipidemia): Status: Chronic
--- NOTE | 2022-07-27 11:09 | HMH.PHAINT1 ---
Pharmacy Intervention Comments: Patient was counseled on all discharge medications prior to discharge. Instructed patient to continue all home medications. Patient verbalized understanding of information provided and had no questions.
--- NOTE | 2022-07-28 14:27 | CARE MANAGER ---
Called and spoke with Mr. Morrell regarding post discharge status. He stated that he is doing well and is aware of his f/u appointments. No concerns voiced at time of call.
== END 2022-07-27 11:16 | disposition home or self-care (01) ==
LOC: ER 07-25 09:21 → 2ND 07-25 09:31
PROVIDERS: Emergency Medicine; Surgery; Admitting Provider Emergency Medicine; Emergency Provider Emergency Medicine; PCP Family Medicine; Visit Provider Internal Medicine Adolescent Medicine
PROC: 0FT44ZZ Resection of Gallbladder, Percutaneous Endoscopic Approach (ICD-10-PCS; CPT 47562; principal; 2022-07-25 13:00)
DX: K81.0 Acute cholecystitis (principal); I10 Essential (primary) hypertension; K21.9 Gastro-esophageal reflux disease without esophagitis; G47.33 Obstructive sleep apnea (adult) (pediatric); E78.5 Hyperlipidemia, unspecified; Z20.822 Contact with and (suspected) exposure to COVID-19
CPT/HCPCS: 47562; 36415; 71046; 74177; 74183; 76376; 76705; 80053; 82150; 83690; 83735; 84484; 85025; 93005; 99285; A9576; C9803; G0378; J2405; Q9967; U0003; U0005

== ENCOUNTER → 2022-08-03 08:41 | Outpatient (CLI) | payer OTHER, SELFPAY ==
[2022-08-03 09:50] LABS: Chloride 106 mmol/L (98-107); Potassium 4.2 mmoL/L (3.5-5.1); Sodium 141 mmol/L (136-145)
[2022-08-03 09:52] LABS: Blood Urea Nitrogen 13 mg/dl (9-20); Estimated Glomerular Filt Rate 76 ml/min (>60); GFR (African American) 92 ML/MIN (>60)
[2022-08-03 09:53] LABS: Alanine Aminotransferase 62 U/L (12-78); Albumin Level 3.8 g/dl (3.5-5.0); Albumin/Globulin Ratio 1.7 (1.1-1.8); Alkaline Phosphatase 139 U/L (38-126); Anion Gap 10.2 mEq/L (5-15); Aspartate Amino Transferase 31 U/L (17-59); Bilirubin,Total 0.7 mg/dl (0.2-1.3); Calcium 8.5 mg/dl (8.4-10.2); Carbon Dioxide 29 mmol/L (22.0-30.0); Globulin 2.3 g/dL (1.3-3.2); Glucose 93 mg/dl (74-100); Total Protein,Serum 6.1 g/dl (6.3-8.2)
== END ==
PROVIDERS: Internal Medicine Adolescent Medicine; PCP Family Medicine; Visit Provider Surgery
DX: R74.01 Elevation of levels of liver transaminase levels (principal)
CPT/HCPCS: 36415; 80053

== ENCOUNTER → 2022-12-14 11:31 | Outpatient (CLI) | payer OTHER, SELFPAY ==
--- NOTE | 2022-12-14 11:34 | NM_ITS ---
APPROVED REPORT Exam: Nuclear Stress Test Indication: soa Patient Location: Outpatient Stress Tech: Isabela Mendoza [place] Tech:Shayla Vu CURT RT(R)(N) Ht: 5 ft 8 in Wt: 220 lbs HR: 50 bpm BP: 159/89 mmHg BSA: 2.13 m2 Rhythm: NSR TID: 1.13 BMI: 33.4 History: soa Procedure: Patient received 0.4 mg of intravenous Lexiscan, resting heart rate 50 bpm, resting blood pressure 159/89 mmHg, with Lexiscan maximum heart rate achieved was 76 bpm which is 85 % of the maximum predicted heart rate and blood pressure was 168/93 mmHg. With Lexiscan, patient denied any complaint of chest pain. Cardiac Stress and Resting SPECT Images: Cardiac Stress and Resting SPECT images were obtained using technetium 99m Myoview 32.7 mCi stress and 10.89 mCi at rest. Resting and stress images demonstrate an attenuated large perfusion defect that is longer visualized with prone stress imaging. These findings are most consistent with diaphragmatic attenuation. Gated images demonstrate a normal LV systolic global and regional function. LVEF is calculated at 53%. Conclusion: No definite reversible ischemia. Diaphragmatic attenuation is present. Gated images demonstrate a normal LV systolic global and regional function. LVEF is calculated at 53%. Electronically signed by : Karmen Cordova, 12/14/2022 18:20:52
--- NOTE | 2022-12-14 14:12 | CA_ITS ---
APPROVED REPORT Exam: Pharmacologic Technologist: Isabela Ang, Ht: 5 ft 8 in Wt: 226 lbs BSA: 2.15 m2 HR: 49 bpm BP: 159/89 mmHg Indications: Dyspnea Medical History Medications: Propranolol,,,,, Pravastatin,,,,, Losartan,,,,, CloPIdogrel,,,,, CetIRIZINE,,,,, Stress Test Details Test: LEXISCAN Reason for pharmacologic stress test: physical limitation. HR Resting HR: 50 bpm Max Heart Rate (APMHR): 160 bpm Max HR Achieved: 76 bpm Target HR (85% APMHR): 136 bpm % of APMHR: 48 Recovery HR: 60 bpm BP Resting BP: 159.0/89.0 mmHg Max BP: 168.0/93.0 mmHg Recovery BP: 168.0/95.0 mmHg ECG Resting ECG: marked sinus bradycardia, rightward axis, cannot R/O old septal CT Clinical Exercise duration: 04:00 min Highest Stage Achieved: Exercise capacity: n/a METs Stress ECG Conclusion Symptoms: SOA, no CP. Arrhythmias/Ectopy: None. ST-T Changes: No significant changes. Conclusion: Unremarkable Lexiscan stress. Myoview images reported separately. Test Summary REST . . . . . . . Resting REST 03:41 . . 50 . 159/ 89 . . Stage 1 01:00 . . 65 . . . . Stage 2 01:00 . . 73 . 155/ 95 . . Stage 3 01:00 . . 68 . 167/ 97 . . Stage 4 01:00 . . 64 . 157/ 90 . Stop exercise at 04:00 RECOVERY 01:00 . . 61 . . . . RECOVERY 02:00 . . 61 . . . . RECOVERY 03:00 . . 60 . 168/ 95 . . RECOVERY 03:18 . . 62 . 168/ 95 . . Electronically signed by : Karmen Cordova, 12/14/2022 18:10:15
== END ==
PROVIDERS: PCP Family Medicine; Visit Provider Nurse Practitioner
DX: R06.00 Dyspnea, unspecified (principal); I10 Essential (primary) hypertension; E78.2 Mixed hyperlipidemia; Q24.5 Malformation of coronary vessels; G47.33 Obstructive sleep apnea (adult) (pediatric); Z95.1 Presence of aortocoronary bypass graft
CPT/HCPCS: 78452; 93017; 93306; A9502; J2785

== ENCOUNTER → 2023-01-14 08:00 | Outpatient (CLI) | payer OTHER, SELFPAY ==
[2023-01-14 08:28] LABS: Basophils % 0.6 % (0.1-2.0); Eosinophils # 0.2 K/mm3 (0.0-0.4); Eosinophils % 2.6 % (0.1-12.0); Hematocrit 46.4 % (42.0-52.0); Hemoglobin 15.3 g/dL (14.1-18.0); Lymphocytes # 1.2 K/mm3 (0.7-4.5); Lymphocytes % 19.1 % (10-50); Mean Corpuscular HGB Conc 33.1 g/dL (31.8-35.4); Mean Corpuscular Hemoglobin 30.4 pg (27.0-31.2); Mean Corpuscular Volume 91.9 fl (80-94); Monocytes # 0.7 K/mm3 (0.1-1.0); Monocytes % 10.5 % (1.7-9.3); Neutrophils # 4.2 K/mm3 (1.8-7.8); Neutrophils % 67.2 % (37.0-80.0); Platelet Count 221 K/mm3 (142-424); Red Blood Count 5.05 M/mm3 (4.60-6.20); Red Cell Distribution Width 13.6 % (11.5-17.5); White Blood Count 6.2 K/mm3 (4.8-10.8)
[2023-01-14 08:35] LABS: Chloride 104 mmol/L (98-107); Potassium 4.3 mmoL/L (3.5-5.1); Sodium 140 mmol/L (136-145)
[2023-01-14 08:37] LABS: Bilirubin,Unconjugated 0.7 mg/dL (0.0-1.1); Blood Urea Nitrogen 14 mg/dl (9-20); Estimated Glomerular Filt Rate 76 ml/min (>60); GFR (African American) 92 ML/MIN (>60)
[2023-01-14 08:38] LABS: Alanine Aminotransferase 29 U/L (12-78); Albumin Level 3.8 g/dl (3.5-5.0); Alkaline Phosphatase 105 U/L (38-126); Anion Gap 12.3 mEq/L (5-15); Aspartate Amino Transferase 26 U/L (17-59); Bilirubin,Indirect 0.7 mg/dL (0.0-0.9); Bilirubin,Total 0.7 mg/dl (0.2-1.3); Calcium 8.2 mg/dl (8.4-10.2); Carbon Dioxide 28 mmol/L (22.0-30.0); Cholesterol 91 mg/dl (140-200); Glucose 92 mg/dl (74-100); Triglycerides 91 mg/dl (30-150); VLDL Cholesterol 18 mg/dL (0-40)
[2023-01-14 08:39] LABS: Chol/HDL Ratio 2.4 (1-3.5); HDL Cholesterol 38 mg/dl (40-60); Magnesium 2.2 mg/dl (1.6-2.3)
[2023-01-14 08:49] LABS: Direct LDL Cholesterol 43.78 mg/dL (100-129)
== END ==
PROVIDERS: PCP Family Medicine; Visit Provider Physician Assistant
DX: R06.00 Dyspnea, unspecified (principal); I10 Essential (primary) hypertension; E78.2 Mixed hyperlipidemia; Q24.5 Malformation of coronary vessels; G47.33 Obstructive sleep apnea (adult) (pediatric); Z95.1 Presence of aortocoronary bypass graft
CPT/HCPCS: 36415; 80048; 80061; 80076; 83735; 85025

== ENCOUNTER 2023-07-11 08:28 | Day surgery (SDC) | payer OTHER, SELFPAY ==
[2023-07-07 12:22] VITALS: BMI 33.4
[2023-07-11] VITALS (7 sets, daily range): BP systolic 96–150; BP diastolic 50–87; PULSE 59–66; RESP 15–18; TEMP 36.1–36.4; O2SAT 91–97
--- NOTE | 2023-07-11 09:19 | HMH.SCOPE ---
Procedure: Date: 07/11/23 Patient Date of :: 1960 Procedure Performed:: Colonoscopy with polypectomy by means other than snare Indications:: History of colon polyps Note: History of multiple adenomatous polyps including large complex polyp at 65 cm (resection/tattoo). Performing Provider:: Terry Gomez MD Referring Provider:: . Sedation:: Monitored anesthesia care Procedure:: After informed consent was obtained the patient was taken to the endoscopy suite. Sedation ensued after the patient was transferred to the left lateral decubitus position. Pulse, blood pressure, and oxygen saturation were monitored throughout the procedure. Digital rectal exam revealed no significant abnormality. The colonoscope was placed in position. The entire colon was evaluated. The colonoscope was carefully removed and the patient was transferred to recovery in stable condition. Please see findings and specimens below for detail. Findings:: Bowel preparation moderate Fairly significant lack of relaxation/spasticity Tattoo site appeared normal Polyps (see specimens) Specimens:: Cecal polyp (cold biopsy forceps) Polyp at 60 cm (cold biopsy forceps) Polyp at 40 cm (cold biopsy forceps) Polyp at 30 cm (cold biopsy forceps) Polyp at 20 cm (cold biopsy forceps) Recommendations:: Timing of repeat colonoscopy is pending pathology will likely be around 2 years secondary to history of complex polyps, multiple polyps noted on short-term repeat evaluation, moderate bowel preparation, spasticity, and lack of relaxation. Complications:: No immediate Estimated blood obtained (mL): 1 Colonoscopy Component Colonoscopy Component Was a colonoscopy performed during today's procedure?: Yes Recommended follow up colonoscopy of at least 10 years?: No If no, follow up colonoscopy recommended in ___ years?: (See above) Reason for not recommending >/= 10 yr follow-up interval?: (See above)
--- NOTE | 2023-07-11 09:27 | EXP.ANES.CKL ---
[facility] Disclaimer: The information contained in this section may have been updated after the patient was seen, as this information can be updated by other users. Medical History Abdominal pain Anomalous aortic origin of coronary artery Dyspnea Gastroesophageal reflux disease HLD (hyperlipidemia) HTN (hypertension) NELA (obstructive sleep apnea) Surgical History History of colonoscopy History of coronary artery bypass graft History of laparoscopic cholecystectomy Family History Other Coronary artery disease Family history of stroke Hypertension Lung cancer Social History Smoking Status: Never smoker second hand exposure: No alcohol intake: never substance use type: denies use current occupational status: employed Travel in the last 8 weeks: None household members: spouse housing: house current occupation: armored vehicle officer current occupational exposures/hazards: No caffeine: Yes [facility] Anesthesia Checklist Patient Identification Patient Identification: Arm Band, Family and Verbal (Name & ) Structural Data Admitted From: Home Planned Operative Procedure/s: Colonoscopy Consent for Planned Operative Procedure(s) Verified: Yes Verified Documents: Surgical Consent and History and Physical NPO Status Verified Time NPO: 05:30 Chart Verification Results Verified: CBC, BMP, ECG and Chest Xray Additional verifications Patient : No Anesthesia Reactions: No Hx Blood Transfusions: No Blood Transfusion Reaction: No Cardiovascular Assessment Heart Sounds: S1 & S2 Pulse Rhythm: Irregular Peripheral Edema: No Airway Assessment Mallampati Score:: Class II C-Spine Mobility Assessed: Yes (FROM) TMJ Mobility Assessed: Yes Dentition: Good Dentition (Nothing loose per pt.) Neurological Assessment Level of Consciousness: Awake, Alert, Appropriate and Follows Commands Hx Seizures: No Numbness or tingling in extremities: No Anesthesia Plan Anesthesia Risk discussed: Yes Anesthesia Plan: Verified ASA Class: III Anesthesia Type: MAC
--- NOTE | 2023-07-11 10:14 | EXP.ANES.I ---
[facility] Anesthesia Record Part I Anesthesia Record I Intake, IV Amount: 500 Hydration: Adequate Estimated blood loss (mL): 5 Urine output (mL): 0 Blood Products used (#): none Blood Pressure: 110/62 SaO2: 91 Pulse Rate: 66 Airway Patency: Patent Respiratory Rate: 16 Temperature: 97.6 F Patient is:: Awake, Drowsy and Stable Stable to PACU at:: 10:15
== END 2023-07-11 10:45 | disposition home or self-care (01) ==
PROVIDERS: PCP Family Medicine; Visit Provider Surgery
PROC: 0DJD8ZZ Inspection of Lower Intestinal Tract, Via Natural or Artificial Opening Endoscopic (ICD-10-PCS; CPT 45380; principal; 2023-07-11 09:30)
DX: Z12.11 Encounter for screening for malignant neoplasm of colon (principal); Z86.010 Personal history of colon polyps; D12.0 Benign neoplasm of cecum; D12.4 Benign neoplasm of descending colon; D12.5 Benign neoplasm of sigmoid colon
CPT/HCPCS: 45380

== ENCOUNTER 2023-09-20 21:04 | Emergency (ER) | payer OTHER, SELFPAY ==
[2023-09-20 21:06] VITALS: BP 154/93; PULSE 65; RESP 20; TEMP 36.6; O2SAT 98; BMI 32.5
[2023-09-20 22:30] VITALS: BP 121/71; PULSE 60; O2SAT 95
--- NOTE | 2023-09-20 22:48 | CT_ITS ---
PROCEDURE INFORMATION: Exam: CT Head Without Contrast Exam date and time: 09/20/2023 10:55 PM Age: 63 years old Clinical indication: Pain; Headache; Additional info: Headache after head trauma TECHNIQUE: Imaging protocol: Computed tomography of the head without contrast. Total images: 291 Radiation optimization: All CT scans at this facility use at least one of these dose optimization techniques: automated exposure control; mA and/or kV adjustment per patient size (includes targeted exams where dose is matched to clinical indication); or iterative reconstruction. COMPARISON: No relevant prior studies available. FINDINGS: Brain: No acute intracranial hemorrhage, midline shift, or mass. Pagan-white interface is maintained. Basilar cisterns are preserved. Minor scattered subcortical white matter hypodensity compatible with remote small vessel ischemic change. Remote lacunar infarct versus prominent CSF fluid space inferior right lentiform nucleus, axial image 32. Benign dural calcifications. Cerebral ventricles: No ventriculomegaly. Paranasal sinuses: Very minor mucosal thickening scattered ethmoid air cells and bilateral maxillary sinuses. No air-fluid levels. Mastoid air cells: Visualized mastoid air cells are well aerated. Auditory system: Filling defect left external auditory canal compatible with cerumen. Bones/joints: Unremarkable. No acute fracture. Soft tissues: Multiple scattered scalp nodules. Vasculature: Mild calcifications bilateral intracranial internal carotid arteries. IMPRESSION: 1. No acute intracranial process. 2. Chronic findings.
[2023-09-20] MEDS: TET/DIPHTH/PERT-ADULT 0.5ML SYRINGE 0.5 ML IM (23:00)
--- NOTE | 2023-09-20 23:11 | PC.NURSE ---
Warm compress applied to pt head lac to help loosen blood clot.
--- NOTE | 2023-09-20 23:20 | PC.NURSE ---
Pt head lac cleansed with soap and water, bacitracin applied
--- NOTE | 2023-09-20 23:38 | HMH.EDGENADL ---
Discharge Plan Disposition Patient Disposition: Home, Self-Care Condition: Good Chief Complaint: Wound/Laceration Prescriptions Prescriptions: No Action propranolol 120 mg capsule,extended release 24 hr 120 mg PO DAILY Qty: 30 11RF clopidogrel 75 mg tablet 75 mg PO DAILY Qty: 30 11RF pravastatin 40 mg tablet 40 mg PO DAILY valsartan-hydrochlorothiazide 160-12.5 mg tablet 1 tab PO DAILY Qty: 30 2RF cetirizine 10 MG tablet 10 mg PO DAILY Referrals Follow up/Referrals: Mich Riely MD [Primary Care Provider] - See instructions Clinical Impressions Clinical Impression: Contusion of scalp Concussion Qualifiers: Encounter type: initial encounter Loss of consciousness presence/duration: without LOC Qualified Code(s): S06.0X0A - Concussion without loss of consciousness, initial encounter Instructions Patient Instructions: DI for Concussion, DI for Abrasion Discharge ED Provider: Meaghan Mckeon General Adult HPI General Chief complaint: Wound/Laceration Stated complaint: AO/@1600 hit head Time Seen by Provider: 09/20/23 22:35 Mode of Arrival: Ambulatory Source of Information: Patient Limitations: No Limitations Description of Symptoms (Recalled from ER Triage Doc. by RN): Pt presents with head laceration after hitting his head on a front end truck loader and unloader of his tractor around 1600. Pt denies any LOC, is on Plavix, last tetanus 6yrs c/o GUNN only at this time. Denies any coordination or viusal changes. History of Present Illness HPI narrative: 63-year-old male with previous medical history of hypertension and hyperlipidemia presenting with head injury. At 4 PM patient hit his crown of his scalp on part of a tractor. At the time he did not lose consciousness but did feel dazed and saw stars. Since then he has had a mild diffuse headache. No vision changes since then or vomiting or other concerns however he did have some bleeding from the site and last tetanus shot was 6 years ago. Related Data Home Medications Medication Instructions Recorded Confirmed cetirizine 10 mg tablet 10 mg PO DAILY Allergy symptoms 09/14/17 07/19/23 pravastatin 40 mg tablet 40 mg PO DAILY Cholesterol 02/03/21 07/19/23 Previous Rx's Medication Instructions Recorded clopidogrel 75 mg tablet 75 mg PO DAILY PLATELET INHIBITOR 06/27/23 #30 tabs propranolol 120 mg capsule,24 120 mg PO DAILY Hypertension #30 11/28/23 hr,extended release caps valsartan 160 1 tab PO DAILY #30 tabs 07/20/23 mg-hydrochlorothiazide 12.5 mg tablet Allergies Allergy/AdvReac Type Severity Reaction Status Date / Time codeine Allergy Mild Verified 07/19/23 13:30 aspirin Allergy Verified 07/19/23 13:30 hydrocodone AdvReac Verified 07/19/23 13:30 PFSH PFS Disclaimer: The information contained in this section may have been updated after the patient was seen, as this information can be updated by other users. Medical History Abdominal pain Anomalous aortic origin of coronary artery Dyspnea Gastroesophageal reflux disease HLD (hyperlipidemia) HTN (hypertension) NELA (obstructive sleep apnea) Surgical History History of colonoscopy History of coronary artery bypass graft History of laparoscopic cholecystectomy Family History Other Coronary artery disease Family history of stroke Hypertension Lung cancer Social History Smoking Status: Never smoker second hand exposure: No alcohol intake: never substance use type: denies use current occupational status: employed Travel in the last 8 weeks: None household members: spouse housing: house current occupation: office manager current occupational exposures/hazards: No caffeine: Yes ROS Obtained: Yes All systems reviewed & no additional complaints except as documented Physical Exam General General appearance: alert and in no apparent distress Head Head exam: normocephalic, normal inspection and other (2 cm contusion with abrasion over the crown of the scalp. No laceration requiring closure.) Eye Eye exam: Present normal appearance, PERRL and EOMI ENT ENT exam: Present normal exam, normal oropharynx, mucous membranes moist, TM's normal bilaterally and normal external ear exam Neck Neck exam: Present normal inspection, full ROM and trachea midline; Absent meningismus or lymphadenopathy Chest Chest inspection: Present normal inspection and symmetric chest wall rise; Absent tenderness Respiratory Respiratory exam: Present normal lung sounds bilaterally; Absent respiratory distress Cardiovascular Cardiovascular exam: Present regular rate and normal rhythm; Absent JVD Abdominal Exam Abdominal exam: Present soft and normal bowel sounds; Absent distention, tenderness or guarding Extremities Exam Extremities exam: Present normal inspection, full ROM and normal capillary refill; Absent calf tenderness Back Exam Back exam: Present normal inspection; Absent tenderness Neurological Exam Neurological exam: Present alert and oriented X3 Psychiatric Psychiatric exam: Present normal affect and normal mood Skin Skin exam: Present warm, dry, intact and normal color Lymphatic Lymphatic Findings: no adenopathy Medical Decision Making Epi Inquiry Pt receiving controlled substance: No Epi was queried for this patient: No Vital Signs: 09/20/23 21:06 09/20/23 22:30 Temperature 97.8 F Temperature Source Oral Pulse Rate 60 Pulse Rate [Left] 65 Respiratory Rate 20 Blood Pressure 121/71 Blood Pressure [Right Arm] 154/93 H Blood Pressure Mean [Right Arm] 113 Blood Pressure Source [Right Arm] Automatic Cuff Blood Pressure Position [Right Arm] Sitting 02 Sat by Pulse Oximetry 98 95 Orders (Tests/Meds): ED MEDICATIONS Generic Name Dose Route Start Last Admin Trade Name Freq PRN Reason Stop Dose Admin Bacitracin/Polymyxin B Sulfate 0 gm 09/21/23 09:00 Bacitracin-Polymyxin B Oint 30gm Tube TP 10/21/23 08:59 QID WILLIS Discontinued Medications Generic Name Dose Route Start Last Admin Trade Name Freq PRN Reason Stop Dose Admin Tetanus/Reduced Diphtheria/Acell Pertussis 0.5 ml 09/20/23 22:48 09/20/23 23:00 Tet/Diphth/Pert-Adult 0.5ml Syringe IM 09/20/23 22:49 0.5 ml .ONCE ONE Administration ORDERS Category Date Time Status CT head/brain wo con Stat Cat Scan 09/20/23 22:48 Completed Medical Decision Narrative: Consider multiple complications of patient's head injury including intracranial hemorrhage, skull fracture, so obtained CT head without which independently reviewed and interpreted and showed no intracranial hemorrhage or skull fracture or other complications. Also considered risk of infection so administered Tdap vaccination but antibiotics are not indicated at this time aside from topical bacitracin. Discussed wound care with patient and he understands and agrees to monitor his wound at home and also provided instructions for concussion care and strict return precautions. He and his understand and are appropriate for discharge. Critical Care Critical Care Time Critical Care Time: No
[2023-09-20 23:39] VITALS: BP 117/93; PULSE 88; RESP 18; TEMP 36.8; O2SAT 97
== END 2023-09-20 23:51 | disposition home or self-care (01) ==
PROVIDERS: Emergency Provider Emergency Medicine; PCP Family Medicine
DX: S06.0X0A Concussion without loss of consciousness, initial encounter (principal); I10 Essential (primary) hypertension; E78.5 Hyperlipidemia, unspecified; W22.8XXA Striking against or struck by other objects, initial encounter
CPT/HCPCS: 70450; 90471; 90715; 99284

== ENCOUNTER 2024-12-06 11:07 | Outpatient (CLI) | payer OTHER, SELFPAY ==
--- NOTE | 2024-12-06 11:13 | XR_ITS ---
FINAL REPORT CLINICAL HISTORY: CHRONIC PAIN IN LEFT KNEE COMPARISON: None FINDINGS: LEFT KNEE: 3 views of the left knee obtained. There is no acute fracture or dislocation. The joint spaces demonstrate mild degenerative joint disease. . There is no soft tissue abnormality. IMPRESSION: Mild degenerative joint disease, without acute osseous abnormality. Reviewed, Interpreted and Dictated by Regi Lopez MD Transcribed by Hayley Julio Authenticated and [facility]
== END 2024-12-06 23:59 | disposition home or self-care (01) ==
LOC: RAD 11:08
PROVIDERS: PCP Family Medicine; Visit Provider Family Medicine
DX: M17.12 Unilateral primary osteoarthritis, left knee (principal)
CPT/HCPCS: 73562

== ENCOUNTER 2024-12-13 06:47 | Outpatient (CLI) | payer OTHER, SELFPAY ==
--- NOTE | 2024-12-13 07:00 | MR_ITS ---
FINAL REPORT TECHNIQUE: Multiplanar and multisequence imaging the left knee was obtained without contrast. CLINICAL HISTORY: LEFT KNEE PAIN. PAIN INFERIOR TO PATELLA. [id number] AGO FELL AND KNEE HURTING SINCE. KNEE INSTABILITY FINDINGS: Bones: There is no acute fracture or marrow edema. The joint space is preserved. There are subchondral foci of T2 abnormality in the patella with grade 2 cartilage defects in the lateral, greater than medial, patellar facets. There is grade 3 cartilage defect of the medial femoral condyle. Menisci: There is a horizontal tear of the body of the medial meniscus which extends into the posterior horn. There is mild anterior extrusion of the anterior horn. The lateral meniscus is intact. Ligaments: No cruciate or collateral ligament tear is present. Tendons/Muscles: The quadriceps and patellar tendons are within normal limits. The biceps femoris tendon and iliotibial tract are intact. The popliteus tendon is normal. Other: There is a small joint effusion. Remaining soft tissues are normal. IMPRESSION: Degenerative joint disease with cartilage abnormalities as above. Tear of the medial meniscus. Reviewed, Interpreted and Dictated by Regi Lopez MD Transcribed by Kady Viveros Authenticated and [facility]
== END 2024-12-13 23:59 | disposition home or self-care (01) ==
LOC: RAD 06:48
PROVIDERS: PCP Family Medicine; Visit Provider Physician Assistant
DX: M17.12 Unilateral primary osteoarthritis, left knee (principal); S83.242A Other tear of medial meniscus, current injury, left knee, initial encounter; W19.XXXA Unspecified fall, initial encounter
CPT/HCPCS: 73721

== ENCOUNTER 2025-01-03 10:13 | Outpatient (CLI) | payer OTHER, SELFPAY ==
--- OUTSIDE RECORDS SUMMARY | 2025-01-03 10:21 | XMS_ITS | Clinical Summary ---
Author Organization [facility] Address [address] [place] [address] Care Team Providers Care Tapping Machine Operator Name Role Phone Mich Riley MD Primary Care Provider [phone] Family History Medical History Relation Name Comments Coronary artery disease Father Conversions - Other Mother No known health problems Relation Name Status Comments Father Mother Social History Tobacco Use Types Packs/Day Years Used Date Smoking Tobacco: Never Alcohol Use Standard Drinks/Week Comments No 0 (1 standard drink = 0.6 oz pur e alcohol) Sex and Gender Information Value Date Recorded Sex Assigned at Not on file Legal Sex Male 6:37 PM EDT Gender Identity Not on file Sexual Orientation Not on file Last Filed Vital Signs Vital Sign Reading Time Taken Comments Blood Pressure 154/83 12/14/2022 7:20 PM EDT Pulse 44 12/14/2022 7:20 PM EDT Temperature - - Respiratory Rate - - Oxygen Saturation - - Inhaled Oxygen Concentration - - Weight 103 kg (226 lb) 12/14/2022 7:20 PM EDT Height 172.7 cm (5' 8 ) 12/14/2022 7:20 PM EDT Body Mass Index 34.36 12/14/2022 7:20 PM EDT Plan of Treatment Health Maintenance Due Date Last Done Comments [facility]-Depression Screening 1962 [facility]-/Child/Adol SDOH Screenings 1960 [facility]- SDOH Screenings 02/11/1980 [facility]-Adult SDOH Screenings 02/11/1980 [facility]-DTaP,Tdap,and Td Vaccine s (1 - Tdap) 10/04/1996 10/03/1996 CT Colonography 2007 Colonoscopy 2007 FIT-DNA 2007 FIT 2007 FOBT 2007 Sigmoidoscopy 2007 [facility]-Colorectal Cancer Screening 2007 [facility]-Pneumococcal Vaccine: 50 + Years (1 of 1 - PCV) 02/11/2012 [facility]-Zoster Vaccines (1 of 2) 02/11/2012 [id number] Vaccine (3 - season) 2024 03/06/2021, 02/06/2021 [facility]-Influenza Vaccine (Seaso n Ended) 2025 06/20/2017 [facility]-RSV Vaccine: 60+ Years o r (1 - 1-dose 75+ series) 2037 HPV Vaccines Aged Out No longer eligi ble based on patient's age to complete this topic [facility]-HIB Vaccines Aged Out No longer e ligible based on patient's age to complete this topic [facility]-Hepatitis A Vaccines Aged Out No longer eligible based on patient's age to complete this topic [facility]-IPV Vaccines Aged Out No longer e ligible based on patient's age to complete this topic [facility]-Rotavirus Vaccines Aged Out No lo nger eligible based on patient's age to complete this topic Insurance [facility] Care Teams Tapping Machine Operator Relationship Specialty Start Date End Date Mich Riley MD [address] [place] [address] [facility] 12/11/20
[2025-01-03 10:34] VITALS: BMI 34.2
[2025-01-03 10:47] LABS: Basophils % 0.5 % (0.1-2.0); Eosinophils # 0.2 Kmm3 (0.0-0.4); Eosinophils % 2.6 % (0.1-12.0); Hematocrit 43.9 % (42.0-52.0); Hemoglobin 15.3 g/dL (14.1-18.0); Immature Granulocytes # 0.04 10^3uL; Immature Granulocytes % 0.5 %; Lymphocytes # 1.5 K/mm3 (0.7-4.5); Lymphocytes % 17.5 % (10-50); Mean Corpuscular HGB Conc 34.9 g/dL (31.8-35.4); Mean Corpuscular Hemoglobin 31.1 pg (27.0-31.2); Mean Corpuscular Volume 89.2 fl (80-94); Mean Platelet Volume 9.9 fl (7.4-10.4); Monocytes # 0.9 K/mm3 (0.1-1.0); Neutrophils # 5.8 K/mm3 (1.8-7.8); Neutrophils % 67.9 % (37.0-80.0); Nucleated Red Blood Cells # 0 10^3/uL; Nucleated Red Blood Cells % 0 %; Platelet Count 247 K/mm3 (142-424); Red Blood Count 4.92 M/mm3 (4.60-6.20); Red Cell Distribution Width 13.2 % (11.5-17.5); Red Cell Distribution Width-SD 42.9 fL; White Blood Count 8.6 K/mm3 (4.8-10.8)
[2025-01-03 10:56] LABS: Anion Gap 7.5 mEq/L (5-15); Blood Urea Nitrogen 19 mg/dl (9-20); Calcium 8.6 mg/dl (8.4-10.2); Carbon Dioxide 26 mmol/L (22.0-30.0); Chloride 104 mmol/L (98-107); Creatinine Clearance Estimated 111 mL/min (50-200); Estimated Glomerular Filt Rate 76 ml/min (>60); GFR (African American) 92 ML/MIN (>60); Glucose 117 mg/dl (74-100); Potassium 3.5 mmoL/L (3.5-5.1); Sodium 134 mmol/L (136-145)
== END 2025-01-03 23:59 | disposition home or self-care (01) ==
LOC: PREOP 10:14
PROVIDERS: PCP Family Medicine; Visit Provider Orthopaedic Surgery
DX: Z01.812 Encounter for preprocedural laboratory examination (principal)
CPT/HCPCS: 80048; 85025

== ENCOUNTER 2025-01-06 10:24 | Day surgery (SDC) | payer OTHER, SELFPAY ==
[2025-01-03 13:09] VITALS: BMI 34.2
[2025-01-06] VITALS (10 sets, daily range): BP systolic 133–159; BP diastolic 68–102; PULSE 54–73; RESP 16–18; TEMP 36.1–36.3; O2SAT 95–97; BMI 34.2
[2025-01-06] MEDS: LACTATED RINGERS 1000ML 1,000 ML 100 ML IV (11:20)
[2025-01-06] MEDS: CEFAZOLIN SODIUM 2 GM in 0.9 % SODIUM CHLORIDE 100 ML IV (12:55)
[2025-01-06] MEDS: BUPIVACAINE 0.25% 30ML VIAL 75 MG (13:09)
--- NOTE | 2025-01-06 13:41 | EXP.ANES.I ---
[facility] Anesthesia Record Part I Anesthesia Record I Intake, IV Amount: 400 Hydration: Adequate Estimated blood loss (mL): 10 Urine output (mL): 0 Blood Products used (#): none Blood Pressure: 159/102 SaO2: 95 Pulse Rate: 73 Airway Patency: Patent Respiratory Rate: 18 Temperature: 97 F Patient is:: Drowsy and Stable Stable to PACU at:: 13:31
--- NOTE | 2025-01-06 13:43 | P.OP_ITS ---
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 Left knee marked with yes my initials. Transported operative suite. Placed upon operating bed general anesthesia was administered airway secured. Left lower extremity prepped and draped within the knee robles. Once prepped and draped final operative timeout performed to identify proper patient procedure and extremity. Everyone involved in the case agreed. There is no counter occasion beginning. Did receive preoperative antibiotics. Marking pen was used to jigar the bony landmarks of the knee and standard portal sites. Esmarch was used to exsanguinate the extremity pneumatic tourniquet inflated to 300 mmHg. Skin knife was used to incise standard anterior lateral portal. Blunt with trocar was placed in the patellofemoral joint exchange with a camera. Scope directly into the medial joint line where the anterior medial portal was made with the help of an 18-gauge spinal needle. This was then exchanged with a probe. There is a macerated tear of the posterior horn of the medial meniscus abutting to the meniscal root there is also subsequent grade 3 grade IV chondromalacia of the medial femoral condyle. Using combination of straight biter sucker shaver partial medial meniscectomy was performed to obtain stable rim. Tensions brought into: Nausea with synovitis present in the patellofemoral joint intercondylar notch was debrided with a sucker shaver the ACL was seen and intact. Tendons brought to the lateral joint line within the lateral joint line there was some softening of the cartilage but no full thickness cartilage lesions. There was a tear of the posterior horn of the lateral meniscus using a straight biter and sucker shaver partial lateral meniscectomy was performed to stable rim. Subject into the medial and lateral gutters and into the medial gutter in the patellofemoral joint there is a large medial engaging plica that was red and inflamed. This was debrided with a sucker shaver to relieve the impingement onto the medial femoral condyle with knee flexion. Cameras removed the joint was drained local anesthesia infiltrated the portal sites skin closed with nylon stitch. Sterile dressing placed from toe to thigh patient waken anesthesia taken recovery in stable condition Condition: stable Disposition: PACU Complications:: None apparent
--- NOTE | 2025-01-07 07:37 | EXP.ANES.II ---
[facility] Anesthesia Record Part II Anesthesia Record Part II Discharge Time: 14:11 Destination: Surgical Day Care (OP Surgery) PACU nurse assessment reviewed?: Yes Patient Condition:: Good Anesthesia Complications:: None Swallowing reflex intact?: Yes Airway Patency: Patent Cyanosis?: No Blood Pressure: 146/92 SaO2: 97 Respiratory Rate: 18 Pulse Rate: 62 Temperature: 97 F Mental Status: Alert & Oriented Pain level:: 5 Nausea and/or vomitting:: None Intake, IV Amount: 0 Hydration: Adequate
[2025-01-07 07:38] VITALS: BP 146/92; PULSE 62; RESP 18; TEMP 36.1; O2SAT 97
== END 2025-01-06 15:25 | disposition home or self-care (01) ==
PROVIDERS: PCP Family Medicine; Visit Provider Orthopaedic Surgery
PROC: (CPT 29870; principal; 2025-01-06 12:00)
DX: S83.232A Complex tear of medial meniscus, current injury, left knee, initial encounter (principal); S83.282A Other tear of lateral meniscus, current injury, left knee, initial encounter; E78.5 Hyperlipidemia, unspecified; I10 Essential (primary) hypertension; Z79.899 Other long term (current) drug therapy; Z88.5 Allergy status to narcotic agent; Z88.6 Allergy status to analgesic agent; M67.52 Plica syndrome, left knee; M22.42 Chondromalacia patellae, left knee; Z79.02 Long term (current) use of antithrombotics/antiplatelets; X58.XXXA Exposure to other specified factors, initial encounter
CPT/HCPCS: 29876; 29880; J0665; J0690; J1100; J2003; J2250; J2405; J2704; J3010; J7120